=== PATIENT | female | born 1940 | race Caucasian/White ===

== ENCOUNTER 2017-03-13 10:20 | Observation (INO) | payer MEDICARE ==
[2017-03-13] MEDS ORDERED: Sodium Chloride 0.9% 5 ML Syringe FLUSH PRN (10:35)
--- NOTE | 2017-03-13 10:44 | EDM.PDOC ---
ED HISTORY OF PRESENT ILLNESS - General Chief Complaint: Chest Pain Stated Complaint: CHEST PAIN Time Seen by Provider: 03/13/17 10:35 Source of Information: Reports: Patient History Limitations: Reports: No limitations - History of Present Illness INITIAL COMMENTS - FREE TEXT/NARRATIVE: PT STATES SHE WAS SITTING AT THE TABLE THIS AM AND DEVELOPED RIGHT SIDED CHEST PAIN WITHOUT RADIATION. DESCRIBED TIGHT/PULLING AND CONSTANT IN NATURE. DENIES SOB, TRAUMA, REPETITIVE MOVEMENTS, N/V, FEVER, COUGH, OR SIMILAR SYMPTOMS IN PAST. PT DROVE SELF TO ER Severity: mild Location, General: Reports: chest Quality: Reports: Pressure Improves with: Reports: None Worsens with: Reports: None Associated Symptoms (General): Reports: chest pain. Denies: cough, cough w sputum, fever/chills, headaches, nausea/vomiting, shortness of breath - Related Data Allergies/ADRs: Allergies Allergy/AdvReac Type Severity Reaction Status Date / Time adhesive tape Allergy SKIN Verified 03/13/17 10:32 BREAKDOWN doxycycline Allergy Other Verified 03/13/17 10:32 gabapentin Allergy Cannot Verified 03/13/17 10:32 Remember Penicillins Allergy Other Verified 03/13/17 10:32 pravastatin sodium Allergy Other Verified 03/13/17 10:32 [From Pravachol] Home Meds: Home Meds Levothyroxine 25 mcg PO ACBRK 07/01/14 [History] Multivitamin [Multi Vitamin Daily] 1 tab PO DAILY 11/06/14 [History] Rosuvastatin [Crestor] 10 mg PO BEDTIME 07/03/15 [History] Aspirin [Ecotrin] 325 mg PO DAILY 12/18/15 [History] Past Medical History HEENT History: Reports: Cataract, Hard of hearing, Impaired vision Cardiovascular History: Reports: Afib, Blood clots/VTE/DVT, High cholesterol, Hypertension Respiratory History: Reports: Asthma Gastrointestinal History: Reports: Diverticulosis Genitourinary History: Reports: None [employer] 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 Musculoskeletal History: Reports: Fracture Neurological History: Reports: None Psychiatric History: Reports: None Endocrine/Metabolic History: Reports: None Hematologic History: Reports: None Immunologic History: Reports: None Oncologic (Cancer) History: Reports: Basal cell carcinoma Dermatologic History: Reports: Other (see below) Other Dermatologic History: basal cell cancer - Infectious Disease History Infectious Disease History: Reports: Chicken pox, Measles, Other (see below) Other Infectious Disease History: whooping cough - Past Surgical History Head Surgeries/Procedures: Reports: None HEENT Surgical History: Reports: Cataract surgery Cardiovascular Surgical History: Reports: Cardiac Ablation Respiratory Surgical History: Reports: None GI Surgical History: Reports: Other (see below) Other GI Surgeries/Procedures: stomach for fatty liver disease Female Surgical History: Reports: None Endocrine Surgical History: Reports: None Neurological Surgical History: Reports: None Musculoskeletal Surgical History: Reports: Hip replacement, Knee replacement Oncologic Surgical History: Reports: Mastectomy, Other (see below) Other Oncologic Surgeries/Procedures: bilateral mastectomy 2001 Dermatological Surgical History: Reports: None Social & Family History - Family History Cardiac: Reports: Afib - Tobacco Use Smoking Status *Q: Never Smoker Second Hand Smoke Exposure: No - Caffeine Use Caffeine Use: Reports: Coffee - Alcohol Use Days Per Week of Alcohol Use: 0 - Recreational Drug Use Recreational Drug Use: No - Living Situation & Occupation Living situation: Reports: Occupation: retired ED ROS GENERAL - Review of Systems Review Of Systems: ROS reveals no pertinent complaints other than HPI. Constitutional: Reports: no symptoms HEENT: Reports: No symptoms Respiratory: Reports: No Symptoms Cardiovascular: Reports: Chest pain Endocrine: Reports: no symptoms GI/Abdominal: Reports: No symptoms : Reports: no symptoms Musculoskeletal: Reports: no symptoms Skin: Reports: no symptoms Neurological: Reports: No Symptoms Psychiatric: Reports: No symptoms Hematologic/Lymphatic: Reports: no symptoms Immunologic: Reports: no symptoms ED EXAM, GENERAL - Physical Exam Exam: See Below Exam Limited By: No limitations General Appearance: alert, WD/WN, no apparent distress Nose: normal inspection, normal mucosa, no blood Throat/Mouth: Normal inspection, Normal oropharynx, No airway compromise Head: atraumatic, normocephalic Neck: normal inspection, supple Respiratory/Chest: no respiratory distress, lungs clear, normal breath sounds, no accessory muscle use, other (RIGHT SIDED CHEST DISCOMFORT WITH PALPATION) Cardiovascular: regular rate, rhythm, no murmur GI/Abdominal: normal bowel sounds, soft, non tender, no distention, no mass Back Exam: normal inspection. No: CVA tenderness (L), CVA tenderness (R) Extremities: normal inspection, non-tender, no pedal edema Neurological: alert, oriented, normal cognition Psychiatric: normal affect, normal mood Skin Exam: Warm, Dry, Intact, Normal color, No rash Lymphatic: no adenopathy Course - Vital Signs Last Recorded V/S: Last Vital Signs Temp 96.5 F 03/13/17 10:32 Pulse 66 03/13/17 10:32 Resp 13 03/13/17 10:32 BP 148/89 H 03/13/17 10:32 Pulse Ox 98 03/13/17 10:32 - Orders/Labs/Meds Orders: Active Orders 24 hr Category Date Time Status Cardiac Monitoring [RC] . DIRECTED Care 03/13/17 10:35 Ordered EKG Documentation Completion [RC] ASDIRECTED Care 03/13/17 10:37 Ordered Peripheral IV Care [RC] . DIRECTED Care 03/13/17 10:37 Ordered Chest 1V Frontal [CR] Stat Exams 03/13/17 10:36 Ordered CBC WITH AUTO DIFF [HEME] Stat Lab 03/13/17 10:35 Ordered COMPREHENSIVE METABOLIC PN,CMP [CHEM] Stat Lab 03/13/17 10:35 Ordered D Dimer [D-DIMER QUANTITATIVE] [COAG] Stat Lab 03/13/17 10:37 Ordered INR,PT,PROTHROMBIN TIME [COAG] Stat Lab 03/13/17 10:35 Ordered PTT,PARTIAL THROMBOPLSTIN TIME [COAG] Stat Lab 03/13/17 10:35 Ordered TROPONIN I [CHEM] Stat Lab 03/13/17 10:35 Ordered Sodium Chloride 0.9% [Syrex Flush] Med 03/13/17 10:35 Ordered 5 ml FLUSH Q8HR PRN Peripheral IV Insertion Adult [OM.PC] Stat Oth 03/13/17 10:35 Ordered Saline Lock Insert [OM.PC] Stat Oth 03/13/17 10:35 Ordered EKG 12 Lead [EK] Stat Ther 03/13/17 10:35 Ordered - Re-Assessments/Exams Free Text/Narrative Re-Assessment/Exam: 03/13/17 12:08 PT AFEBRILE, NONTOXIC APPEARING, VSS. DISCUSSED CASE WITH FREDY FARNSWORTH, [facility] AND WILL ADMIT PT TO OBSERVATION AND FOLLOW Departure - Departure Time of Disposition: 12:09 Disposition: Refer to Observation Condition: good Clinical Impression: Chest pain Qualifiers: Chest pain type: unspecified Qualified Code(s): R07.9 - Chest pain, unspecified Forms: ED Department Discharge - My Orders Last 24 Hours: My Active Orders 03/13/17 10:35 Cardiac Monitoring [RC] . DIRECTED CBC WITH AUTO DIFF [HEME] Stat COMPREHENSIVE METABOLIC PN,CMP [CHEM] Stat INR,PT,PROTHROMBIN TIME [COAG] Stat PTT,PARTIAL THROMBOPLSTIN TIME [COAG] Stat TROPONIN I [CHEM] Stat Sodium Chloride 0.9% [Syrex Flush] 5 ml FLUSH Q8HR PRN Peripheral IV Insertion Adult [OM.PC] Stat Saline Lock Insert [OM.PC] Stat EKG 12 Lead [EK] Stat 03/13/17 10:36 Chest 1V Frontal [CR] Stat 03/13/17 10:37 EKG Documentation Completion [RC] ASDIRECTED Peripheral IV Care [RC] . DIRECTED D Dimer [D-DIMER QUANTITATIVE] [COAG] Stat - Assessment/Plan Last 24 Hours: My Active Orders 03/13/17 10:35 Cardiac Monitoring [RC] . DIRECTED CBC WITH AUTO DIFF [HEME] Stat COMPREHENSIVE METABOLIC PN,CMP [CHEM] Stat INR,PT,PROTHROMBIN TIME [COAG] Stat PTT,PARTIAL THROMBOPLSTIN TIME [COAG] Stat TROPONIN I [CHEM] Stat Sodium Chloride 0.9% [Syrex Flush] 5 ml FLUSH Q8HR PRN Peripheral IV Insertion Adult [OM.PC] Stat Saline Lock Insert [OM.PC] Stat EKG 12 Lead [EK] Stat 03/13/17 10:36 Chest 1V Frontal [CR] Stat 03/13/17 10:37 EKG Documentation Completion [RC] ASDIRECTED Peripheral IV Care [RC] . DIRECTED D Dimer [D-DIMER QUANTITATIVE] [COAG] Stat Assessment:: CHEST PAIN Plan: ADMIT TO OBS
[2017-03-13 11:32] LABS: CHLORIDE,CL 106 mmol/L (98-115); SODIUM,NA 145 mmol/L (136-145)
[2017-03-13] MEDS ORDERED: Atropine 0.1 MG/ML 10 ML Syringe IVPUSH PRN (13:26)
[2017-03-13] MEDS ORDERED: Nitroglycerin 0.4 MG Tab.SL SL PRN (13:26)
[2017-03-13] MEDS ORDERED: EPINEPHrine 1:10,000 1 MG/10 ML Syringe IVPUSH PRN (13:26)
[2017-03-13] MEDS ORDERED: Lidocaine 2% 100 MG/5 ML Syringe IVPUSH PRN (13:26)
[2017-03-13] MEDS ORDERED: LORazepam 0.5 MG Tab PO ONE (18:06)
[2017-03-13] MEDS ORDERED: Rosuvastatin 10 MG Tab PO SCH (21:00)
[2017-03-13] MEDS: Clopidogrel 75 MG Tab PO SCH (21:10)
[2017-03-14 06:28] VITALS: BP 121/60
[2017-03-14] MEDS ORDERED: Levothyroxine 25 MCG Tab PO SCH (07:00)
[2017-03-14] MEDS: Clopidogrel 75 MG Tab PO SCH ×2 (07:57→08:49)
[2017-03-14] MEDS: Aspirin 325 MG Tab.EC PO SCH ×2 (07:57→08:49)
--- NOTE | 2017-03-14 18:08 | HP ---
This a history and physical combined with a discharge summary. The patient was admitted into observation on 03/13/2017 and she was discharged from observation on 03/14/2017, less than 24 hours. ADMITTING DIAGNOSIS: Chest pain. FINAL DIAGNOSES: Chest pain, atypical, likely anginal with likely non-STEMI type 2; with hyperlipidemia and hypertension; mild anxiety. HISTORY OF PRESENT ILLNESS: This 76-year-old female was admitted in observation. She came to the ED complaining of some right-sided chest pain. She did not have any radiation. She states she was sitting at the table yesterday morning, when she started having her right-sided chest pain. She also states that about a month ago, she had some left-sided chest pain. She had a very difficult time describing it. However, she did vaguely describe it as somewhat of a tight pulling sensation, somewhat constant in nature. It was not reproducible. At the time when she came in, she had no shortness of breath. No nausea. Denied any cough. She actually drove herself to the ED. She was admitted basically for rule out myocardial infarction. Her troponin was slightly elevated at the upper limits of 0.08, so she was placed in telemetry. PAST MEDICAL HISTORY: Includes, hypertension, hyperlipidemia, histories of DVT per family, hyperthyroidism, diverticulitis, osteoarthritis, arthritis in both knees, hepatic steatosis, adrenal adenoma, fibromyalgia, inflammatory arthritis, osteopenia. Family does report at times confusion. History of atrial fibrillation, status post ablation 3 years ago. PAST SURGICAL HISTORY: Tobacco and alcohol, denies any. Never smoked. Caffeine use, coffee. Recreational drug use, none. Living situation and occupation: The patient is . Occupation, is retired. The patient is a do not resuscitate. MEDICATIONS: At home: Levothyroxine 25 mcg p.o. daily, Crestor 10 mg daily, Prolia 60 mg every 6 months, aspirin 325 mg tablet which she took prior to admission, multivitamin daily, calcium carbonate/vitamin-D daily. MEDICATIONS: 1. Nitroglycerin as directed (newly added). 2. Plavix 75 mg p.o. daily (newly added). 3. Aspirin, reduced down to 81 mg. The patient was taking 325 p.o. daily, and she can continue on all other her home medications. The patient's family did consult with Dr. Horton on rounds and recommended a head CT. The family thought, maybe she had some histories of confusion; however, the patient has refused this head CT. DISPOSITION: The patient will be discharged from the hospital. She was given specific instructions regarding if she has any increase in further chest pain, she is supposed to take nitroglycerin and call for help or seek medical care. Report any chest pain or nausea or diaphoresis. FOLLOWUP: The patient will follow up at [facility]. RECOMMENDATIONS AT FOLLOWUP: Schedule the patient for a treadmill within a month. Verify family's history that the patient had a stroke, as this is not in her medical record and the patient has no recollection of history of stroke. Please clarify family history. ALLERGIES: Penicillin which gives her hives, doxycycline, gabapentin, pravastatin and adhesive tape. However, she is tolerating Crestor. REVIEW OF SYSTEMS: A 10-point review of system was obtained. All were negative. PHYSICAL EXAMINATION: VITAL SIGNS: Temperature 96.8, heart rate around 57, blood pressure 121/60, O2 sats 98% room air, respiratory rate 16. LUNGS: Clear to auscultation. GENERAL APPEARANCE: Alert. No distress. HEAD: Atraumatic. NECK: Supple. No bruits. CARDIOVASCULAR: Regular rate and rhythm. No S3. Negative murmur. GI: She had good bowel tones. Soft, nontender. MUSCULOSKELETAL: No CVA tenderness. NEUROLOGICAL: The patient is alert and oriented. Normal cognition. Very lucid. She had a good affect. She seems slightly anxious. SKIN: Warm, dry, and intact. No rash. HOSPITAL COURSE: She did remain in telemetry last night. She did have a troponin that peaked at 0.09 and then went back down to normal this morning. Thyroid was normal. Sodium 145, potassium 3.9, chloride 106, BUN 12, creatinine 0.69, creatinine clearance 60. Hematological, unremarkable. Microbiology report, none. EKG did not show any ST abnormality, however PVCs around 10 per minute. Nurses did not report any aberrancy or any abnormal telemetry. Chest x-ray, no acute process. MEDICAL DECISION MAKIN minutes were spent on this discharge planning and process, discussing, coordinating care with Pharmacy and family. /[id number]/MODL MTDD
== END 2017-03-14 11:35 | disposition home or self-care (01) ==
LOC: KA.ED 10:20 → KA.MS 12:10
PROVIDERS: ADMIT Physician Assistant Surgical; ATTEND Family Medicine
DX: R07.9 Chest pain, unspecified (principal); I10 Essential (primary) hypertension; E78.00 Pure hypercholesterolemia, unspecified; J45.909 Unspecified asthma, uncomplicated; E05.90 Thyrotoxicosis, unspecified without thyrotoxic crisis or storm; Z79.82 Long term (current) use of aspirin; Z79.899 Other long term (current) drug therapy; Z88.0 Allergy status to penicillin; Z88.1 Allergy status to other antibiotic agents; Z91.09 Other allergy status, other than to drugs and biological substances; Z88.8 Allergy status to other drugs, medicaments and biological substances; Z96.649 Presence of unspecified artificial hip joint; Z96.659 Presence of unspecified artificial knee joint
CPT/HCPCS: 36415; 71010; 80053; 84443; 84484; 85025; 85379; 85610; 85730; 99285; A9270; 93005; G0378

== ENCOUNTER 2017-04-04 15:55 | Emergency (ER) | payer MEDICARE ==
--- NOTE | 2017-04-04 16:23 | EDM.PDOC ---
Addendum entered and electronically signed by Kings Anderson PA-C 04/04/17 17 :05: Some information was accidentally added to this note and signed that was intended for another patient. This includes: the neck tenderness, the head CT results, the second entry in "course", the headache diagnosis and the discharge plan. The discharge times will also be incorrect since I signed it prematurely. The CXR is unremarkable. Troponin is 0.05. Discussed findings and treatment plan with patient. She remained stable throughout ER course and was discharged in stable condition. The correct diagnosis is: chest wall pain. The discharge instructions are: 1. Drink 6-8 cups of water daily. 2. Follow up with your PCP in 3 days for recheck. 3. Return to ER if worsening. Original Note: ED HPI GENERAL MEDICAL PROBLEM - General Stated Complaint: CHEST PAIN Time Seen by Provider: 04/04/17 15:56 Source of Information: Reports: Patient History Limitations: Reports: No Limitations - History of Present Illness INITIAL COMMENTS - FREE TEXT/NARRATIVE: Patient presents with left anterior chest pain that started ten hours ago (at 0600) at home. She describes at as pain that worsens with deep breaths and then improves after a few seconds but doesn't completely resolve. It is also worse when she lies down but improves with sitting, standing or walking. She worked out in her yard and garden for 1.5 (at 0630 or 0700) hours and when she went back in house she wondered if she did too much lifting as it was hurting. She has had numerous episodes today but all improve with change in position and last only a few seconds. She denies any history of heart problems except 3 weeks ago was here with chest pain that she thinks was a heart attack and was observed in the hospital. She does have family history of heart problems most notably in her children with one heart transplant and one . Record shows diagnoses from that day include: chest pain, essential hypertension, hypercholesterolemia, asthma, thyrotoxicosis. Will review lab and EKG from that visit too. - Related Data Allergies Allergy/AdvReac Type Severity Reaction Status Date / Time adhesive tape Allergy SKIN Verified 04/04/17 16:28 BREAKDOWN doxycycline Allergy Other Verified 04/04/17 16:28 gabapentin Allergy Cannot Verified 04/04/17 16:28 Remember Penicillins Allergy Other Verified 04/04/17 16:28 pravastatin sodium Allergy Other Verified 05/19/17 16:28 [From Pravachol] Home Meds: Home Meds Levothyroxine 25 mcg PO ACBRK 07/01/14 [History] Multivitamin [Multi-Vitamin Daily] 1 tab PO DAILY 11/06/14 [History] Rosuvastatin [Crestor] 10 mg PO BEDTIME 07/03/15 [History] Aspirin [Adult Low Dose Aspirin EC] 81 mg PO DAILY #90 tablet. 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 Musculoskeletal History: Reports: Fracture Neurological History: Reports: None Psychiatric History: Reports: None Endocrine/Metabolic History: Reports: None Hematologic History: Reports: None Immunologic History: Reports: None Oncologic (Cancer) History: Reports: Basal Cell Carcinoma Dermatologic History: Reports: Other (See Below) Other Dermatologic History: basal cell cancer - Infectious Disease History Infectious Disease History: Reports: Chicken Pox, Measles, Other (See Below) Other Infectious Disease History: whooping cough - Past Surgical History HEENT Surgical History: Reports: Cataract Surgery GI Surgical History: Reports: Other (See Below) Musculoskeletal Surgical History: Reports: Hip Replacement, Knee Replacement Oncologic Surgical History: Reports: Mastectomy, Other (See Below) Social & Family History - Family History Family Medical History: Noncontributory Cardiac: Reports: Afib - Tobacco Use Smoking Status *Q: Never Smoker Second Hand Smoke Exposure: No - Caffeine Use Caffeine Use: Reports: Coffee - Alcohol Use Days Per Week of Alcohol Use: 0 - Recreational Drug Use Recreational Drug Use: No - Living Situation & Occupation Living situation: Reports: Occupation: Retired ED ROS GENERAL - Review of Systems Review Of Systems: See Below Constitutional: Denies: Fever, Chills, Malaise, Weakness, Diaphoresis HEENT: Denies: Throat Pain, Vision Change Respiratory: Denies: Shortness of Breath, Cough Cardiovascular: Reports: Chest Pain. Denies: Lightheadedness, Syncope GI/Abdominal: Denies: Abdominal Pain, Nausea, Vomiting Musculoskeletal: Denies: Neck Pain, Arm Pain Skin: Denies: Cyanosis, Jaundice, Mottled, Pallor, Diaphoresis Neurological: Denies: Confusion, Dizziness, Headache, Seizure, Syncope, Trouble Speaking Psychiatric: Denies: Agitation, Anxiety, Confusion ED EXAM, GENERAL - Physical Exam Exam: See Below Exam Limited By: No Limitations General Appearance: Alert, WD/WN, No Apparent Distress Eye Exam: Bilateral Eye: EOMI, Normal Inspection, PERRL Ears: Normal External Exam, Hearing Grossly Normal Nose: Normal Inspection, No Blood Throat/Mouth: Normal Lips, Normal Voice, No Airway Compromise Head: Atraumatic, Normocephalic Neck: Normal Inspection, Supple, Full Range of Motion, Tender Lateral (right lateral muscular). No: Carotid Bruit Respiratory/Chest: No Respiratory Distress, Lungs Clear, Normal Breath Sounds, No Accessory Muscle Use, Other (Palpation is tender over left anterior ribs 5-9 without crepitus or deformity. This is the same pain she has been feeling today and similar to the right-sided pain she had 3 weeks ago she says.) Cardiovascular: Normal Peripheral Pulses, Regular Rate, Rhythm, No Murmur GI/Abdominal: Normal Bowel Sounds, Soft, Non-Tender, No Organomegaly, No Distention Back Exam: No: CVA Tenderness (L), CVA Tenderness (R) Extremities: Normal Inspection, Normal Range of Motion, Non-Tender, No Pedal Edema Neurological: Alert, Oriented, Normal Cognition, No Motor/Sensory Deficits Psychiatric: Normal Affect, Normal Mood Skin Exam: Warm, Dry, Intact, Normal Color, No Rash Course - Orders/Labs/Meds Orders: Active Orders 24 hr Category Date Time Status EKG Documentation Completion [RC] ASDIRECTED Care 04/04/17 16:09 Ordered BASIC METABOLIC PANEL,BMP [CHEM] Stat Lab 04/04/17 16:08 Ordered CBC WITH AUTO DIFF [HEME] Stat Lab 04/04/17 16:08 Ordered TROPONIN I [CHEM] Stat Lab 04/04/17 16:08 Ordered EKG 12 Lead [EK] Routine Ther 04/04/17 16:08 Ordered - Re-Assessments/Exams Free Text/Narrative Re-Assessment/Exam: 04/04/17 16:36 EKG shows no evidence of acute change and is unchanged from comparison on . 04/04/17 16:47 Patient remained stable throughout ER course and rates pain down to 1/[address] shows no acute changes or bleed. Discussed findings with patient and will discharge with follow up advised with her neurologist in [place] since she hasn't been to him for two years; with the more frequent headaches in recent weeks. She agrees with this. Departure - Departure Time of Disposition: 16:49 Disposition: Home, Self-Care 01 Condition: good Clinical Impression: Headache Qualifiers: Headache type: unspecified Headache chronicity pattern: acute headache Intractability: not intractable Qualified Code(s): R51 - Headache Additional Instructions: 1. Drink 6-8 cups of water daily. 2. Recheck with your neurologist soon if possible. 3. Follow up with your PCP if unable to get in to neurologist in the next couple weeks. - My Orders Last 24 Hours: My Active Orders 04/04/17 16:08 BASIC METABOLIC PANEL,BMP [CHEM] Stat CBC WITH AUTO DIFF [HEME] Stat TROPONIN I [CHEM] Stat EKG 12 Lead [EK] Routine 04/04/17 16:09 EKG Documentation Completion [RC] ASDIRECTED - Assessment/Plan Last 24 Hours: My Active Orders 04/04/17 16:08 BASIC METABOLIC PANEL,BMP [CHEM] Stat CBC WITH AUTO DIFF [HEME] Stat TROPONIN I [CHEM] Stat EKG 12 Lead [EK] Routine 04/04/17 16:09 EKG Documentation Completion [RC] ASDIRECTED
[2017-04-04 16:29] VITALS: BP 138/62
[2017-04-04 16:56] LABS: CHLORIDE,CL 106 mmol/L (98-115); SODIUM,NA 145 mmol/L (136-145)
== END 2017-04-04 17:35 | disposition home or self-care (01) ==
LOC: KA.ED 15:55
DX: R07.89 Other chest pain (principal); R51 Headache; I48.91 Unspecified atrial fibrillation; I10 Essential (primary) hypertension; E78.00 Pure hypercholesterolemia, unspecified; J45.909 Unspecified asthma, uncomplicated; Z88.0 Allergy status to penicillin; Z88.8 Allergy status to other drugs, medicaments and biological substances; Z79.82 Long term (current) use of aspirin; Z79.899 Other long term (current) drug therapy; Z98.49 Cataract extraction status, unspecified eye; Z96.659 Presence of unspecified artificial knee joint; Z96.649 Presence of unspecified artificial hip joint
CPT/HCPCS: 71020; 80048; 84484; 85025; 93005; 99282; 99284

== ENCOUNTER 2017-08-29 04:58 | Emergency (ER) | payer MEDICARE ==
[2017-08-29] MEDS ORDERED: Ondansetron 4 MG Tab.DIS PO ONE (05:00)
[2017-08-29] MEDS ORDERED: Ondansetron 4 MG Tab.DIS ONE (05:10)
[2017-08-29 05:28] VITALS: BP 114/74
--- NOTE | 2017-08-29 06:05 | EDM.PDOC ---
ED HPI GENERAL MEDICAL PROBLEM - General Chief Complaint: Gastrointestinal Problem Stated Complaint: N/V Time Seen by Provider: 08/29/17 05:38 Source of Information: Reports: Patient History Limitations: Reports: No Limitations - History of Present Illness INITIAL COMMENTS - FREE TEXT/NARRATIVE: Patient presents with nausea and mid-epigastric pain that started early yesterday; the nausea first, then the pain. She vomited twice during the night. Initially she denies any diarrhea or constipation (and this is what she told the nurse on arrival, as well as nausea but no vomiting) but later in the exam she told me she had diarrhea 5 times last night. Zofran ODT was given shortly after arrival, so when I examined her she had started feeling much better with the nausea gone and the mid-epigastric pain gone. Pt says she doesn 't often get sick and is always busy with something; she is cleaning up a little house that they recently bought: the oldest house in [place] she says. - Related Data Allergies Allergy/AdvReac Type Severity Reaction Status Date / Time adhesive tape Allergy SKIN Verified 08/29/17 05:14 BREAKDOWN doxycycline Allergy Other Verified 08/29/17 05:14 gabapentin Allergy Cannot Verified 08/29/17 05:14 Remember Penicillins Allergy Other Verified 08/29/17 05:14 pravastatin sodium Allergy Other Verified 08/29/17 05:14 [From Pravachol] Home Meds: Home Meds Multivitamin [Multi-Vitamin Daily] 1 tab PO DAILY 11/06/14 [History] Rosuvastatin [Crestor] 10 mg PO BEDTIME 07/03/15 [History] Aspirin [Adult Low Dose Aspirin EC] 81 mg PO DAILY #90 tablet. 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 Musculoskeletal History: Reports: Arthritis, Fracture, Fibromyalgia Neurological History: Reports: None, Headaches, Chronic Psychiatric History: Reports: None Endocrine/Metabolic History: Reports: Hypothyroidism Hematologic History: Reports: Anemia Immunologic History: Reports: None Oncologic (Cancer) History: Reports: Basal Cell Carcinoma Dermatologic History: Reports: Other (See Below) Other Dermatologic History: basal cell cancer - Infectious Disease History Infectious Disease History: Reports: Chicken Pox, Measles, Other (See Below) Other Infectious Disease History: whooping cough - Past Surgical History Head Surgeries/Procedures: Reports: None HEENT Surgical History: Reports: Cataract Surgery GI Surgical History: Reports: Other (See Below) Musculoskeletal Surgical History: Reports: Hip Replacement, Knee Replacement Oncologic Surgical History: Reports: Mastectomy, Other (See Below) Social & Family History - Family History Family Medical History: Noncontributory Cardiac: Reports: Afib - Tobacco Use Smoking Status *Q: Never Smoker Second Hand Smoke Exposure: No - Caffeine Use Caffeine Use: Reports: Coffee - Alcohol Use Days Per Week of Alcohol Use: 0 - Recreational Drug Use Recreational Drug Use: No - Living Situation & Occupation Living situation: Reports: Occupation: Retired ED ROS GENERAL - Review of Systems Review Of Systems: See Below Constitutional: Denies: Fever (but has low-grade fever in ER), Chills, Weakness HEENT: Denies: Throat Pain, Vision Change Respiratory: Denies: Shortness of Breath, Cough Cardiovascular: Denies: Chest Pain, Syncope GI/Abdominal: Reports: Abdominal Pain, Nausea : Reports: Flank Pain (bilat, not sure how long). Denies: Dysuria Musculoskeletal: Reports: No Symptoms Skin: Denies: Cyanosis, Jaundice, Mottled, Pallor, Diaphoresis Neurological: Reports: Difficulty Walking (a little off balance sometimes for the past week). Denies: Weakness Psychiatric: Denies: Agitation, Anxiety ED EXAM, GI/ABD - Physical Exam Exam: See Below Exam Limited By: No Limitations General Appearance: Alert, WD/WN, No Apparent Distress Eyes: Bilateral: Normal Appearance, EOMI Ears: Normal External Exam, Hearing Grossly Normal Nose: Normal Inspection, No Blood Throat/Mouth: Normal Inspection, Normal Lips, Normal Voice, No Airway Compromise Head: Atraumatic, Normocephalic Neck: Normal Inspection, Full Range of Motion Respiratory/Chest: No Respiratory Distress, Lungs Clear, Normal Breath Sounds, No Accessory Muscle Use Cardiovascular: Regular Rate, Rhythm, No Murmur GI/Abdominal Exam: Normal Bowel Sounds, Soft, No Organomegaly, No Distention, Tender (in RUQ and LUQ only; non-tender in mid-epigastrium and elsewhere) Back Exam: CVA Tenderness (L), CVA Tenderness (R). No: Paraspinal Tenderness, Vertebral Tenderness Extremities: Normal Inspection, Normal Range of Motion, Other (5/5 strength of UE/LE bilat) Neurological: Alert, Oriented, CN II-XII Intact, No Motor/Sensory Deficits, Confused (There seems to be a little confusion consistent with mild dementia or possibly a UTI.) Psychiatric: Normal Affect, Normal Mood Skin Exam: Warm, Dry, Intact, Normal Color, No Rash Course - Vital Signs Last Recorded V/S: Last Vital Signs Temp 99.7 F 08/29/17 05:21 Pulse 80 08/29/17 05:21 Resp 16 08/29/17 05:21 BP 114/74 08/29/17 05:21 Pulse Ox 97 08/29/17 05:21 - Orders/Labs/Meds Orders: Active Orders 24 hr Category Date Time Status CBC WITH AUTO DIFF [HEME] Stat Lab 08/29/17 05:54 Ordered CMP [COMPREHENSIVE METABOLIC PN,CMP] [CHEM] Stat Lab 08/29/17 05:54 Ordered UA W/MICROSCOPIC [URIN] Stat Lab 08/29/17 05:54 Uncollected Meds: Medications Discontinued Medications Generic Name Dose Route Start Last Admin Trade Name Kevin PRN Reason Stop Dose Admin Ondansetron HCl Confirm 08/29/17 05:10 Zofran Odt Administered 08/29/17 05:11 Dose 4 mg .ROUTE .STK-MED ONE - Re-Assessments/Exams Free Text/Narrative Re-Assessment/Exam: 08/29/17 06:05 We talked privately with pt's and asked about any confusion. He says that he has noticed some confusion ever since she had a knee replacement 2-3 years ago, he thinks was the anesthesia, but thinks it might be a little worse in last two days. tells me she has an appointment today with government relations manager in [place]. She had an ablation for A Fib that was successful. 08/29/17 07:12 UA is negative for UTI. With the balance problem and the recent confusion will get a head CT. Patient is feeling comfortable. I discussed this with pt and her who agree with getting head CT. 08/29/17 07:[address] is negative for acute pathology. Mild to moderate chronic small vessel changes are noted. Labs and exam show evidence of dehydration. Discussed with patient and her and they will follow up with her PCP for further evaluation of memory loss and balance issues as needed. Patient discharged in stable condition. Nausea remains controlled and Rx for Zofran ODT provided for prn use. Departure - Departure Time of Disposition: 07:48 Disposition: Home, Self-Care 01 Condition: Good Clinical Impression: Nausea and vomiting in adult patient - Discharge Information Instructions: Nausea and Vomiting, Adult, [id number] Additional Instructions: 1. Take the Zofran ODT and place it under your tongue as directed for nausea or vomiting. 2. Drink 8 cups of water daily. 3. Follow up with your PCP next week for recheck or sooner if worsening. - My Orders Last 24 Hours: My Active Orders 08/29/17 05:54 CBC WITH AUTO DIFF [HEME] Stat CMP [COMPREHENSIVE METABOLIC PN,CMP] [CHEM] Stat UA W/MICROSCOPIC [URIN] Stat - Assessment/Plan Last 24 Hours: My Active Orders 08/29/17 05:54 CBC WITH AUTO DIFF [HEME] Stat CMP [COMPREHENSIVE METABOLIC PN,CMP] [CHEM] Stat UA W/MICROSCOPIC [URIN] Stat
[2017-08-29 06:56] LABS: CHLORIDE,CL 105 mmol/L (98-115); SODIUM,NA 142 mmol/L (136-145)
== END 2017-08-29 08:00 | disposition home or self-care (01) ==
LOC: KA.ED 04:58
DX: R11.2 Nausea with vomiting, unspecified (principal); R10.13 Epigastric pain; J45.909 Unspecified asthma, uncomplicated; I48.91 Unspecified atrial fibrillation; E78.00 Pure hypercholesterolemia, unspecified; I10 Essential (primary) hypertension; M19.90 Unspecified osteoarthritis, unspecified site; E03.9 Hypothyroidism, unspecified; Z98.49 Cataract extraction status, unspecified eye; Z96.659 Presence of unspecified artificial knee joint; Z79.82 Long term (current) use of aspirin; Z79.899 Other long term (current) drug therapy; Z88.0 Allergy status to penicillin; Z88.1 Allergy status to other antibiotic agents; Z88.8 Allergy status to other drugs, medicaments and biological substances; Z91.09 Other allergy status, other than to drugs and biological substances; Z87.440 Personal history of urinary (tract) infections; Z96.649 Presence of unspecified artificial hip joint
CPT/HCPCS: 36415; 70450; 80053; 81001; 85025; 96374; 99284; A9270

== ENCOUNTER 2017-11-18 11:56 | Emergency (ER) | payer MEDICARE ==
[2017-11-18] MEDS ORDERED: Sodium Chloride 0.9% 5 ML Syringe FLUSH PRN (12:11)
--- NOTE | 2017-11-18 12:26 | EDM.PDOC ---
ED HPI GENERAL MEDICAL PROBLEM - General Time Seen by Provider: 11/18/17 12:11 Source of Information: Reports: Patient, EMS, EMS Notes Reviewed History Limitations: Reports: No Limitations - History of Present Illness INITIAL COMMENTS - FREE TEXT/NARRATIVE: Patient is a 77-year-old female who presents via EMS to the emergency department this afternoon with a complaint of chest pain. Patient was sent from [facility] in [place] after being being seen by the provider there and found to have an irregular ekg. Patient states that at approximately 9 a.m. this morning she was sweeping the floor and felt sharp pain to her left chest. She also experienced some vision blurriness. Patient went to the [facility] where she was then transferred here. Patient seemed mildly confused to EMS staff who know her well. Previous ER documentation from 08/29/2017 affirms confusion state and at that time mentioned that this is been going on for several years. CT head on 08/29/2017 showed no acute intracranial process. Patient denies shortness of breath, nausea, vomiting, diarrhea, fever, abdominal pain, any fall or trauma. Onset: Today Duration: Minutes: Location: Reports: Chest Quality: Reports: Ache Severity: Mild Improves with: Reports: None Worsens with: Reports: None Associated Symptoms: Reports: Chest Pain. Denies: Cough, Fever/Chills, Nausea/ Vomiting, Shortness of Breath, Syncope - Related Data Allergies Allergy/AdvReac Type Severity Reaction Status Date / Time adhesive tape Allergy SKIN Verified 11/18/17 12:42 BREAKDOWN doxycycline Allergy Other Verified 11/18/17 12:42 gabapentin Allergy Cannot Verified 11/18/17 12:42 Remember Penicillins Allergy Other Verified 11/18/17 12:42 pravastatin sodium Allergy Other Verified 11/18/17 12:42 [From Pravachol] Home Meds: Home Meds Rosuvastatin [Crestor] 10 mg PO BEDTIME 07/03/15 [History] Clopidogrel [Plavix] 75 mg PO DAILY #90 tablet 03/14/17 [Rx] Levothyroxine 25 mcg PO Q2D 11/18/17 [History] Levothyroxine 37.5 mcg PO Q2D 11/18/17 [History] Past Medical History HEENT History: Reports: Cataract, Hard of Hearing, Impaired Vision Cardiovascular History: Reports: Afib, Blood Clots/VTE/DVT, High Cholesterol, Hypertension Respiratory History: Reports: Asthma Gastrointestinal History: Reports: Diverticulosis Genitourinary History: Reports: None, UTI, Recurrent 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 Musculoskeletal History: Reports: Arthritis, Fracture, Fibromyalgia Neurological History: Reports: None, Headaches, Chronic Psychiatric History: Reports: None Endocrine/Metabolic History: Reports: Hypothyroidism Hematologic History: Reports: Anemia Immunologic History: Reports: None Oncologic (Cancer) History: Reports: Basal Cell Carcinoma Dermatologic History: Reports: Other (See Below) Other Dermatologic History: basal cell cancer - Infectious Disease History Infectious Disease History: Reports: Chicken Pox, Measles, Other (See Below) Other Infectious Disease History: whooping cough - Past Surgical History Head Surgeries/Procedures: Reports: None HEENT Surgical History: Reports: Cataract Surgery GI Surgical History: Reports: Other (See Below) Musculoskeletal Surgical History: Reports: Hip Replacement, Knee Replacement Oncologic Surgical History: Reports: Mastectomy, Other (See Below) Social & Family History - Family History Family Medical History: Noncontributory Cardiac: Reports: Afib - Tobacco Use Smoking Status *Q: Never Smoker Second Hand Smoke Exposure: No - Caffeine Use Caffeine Use: Reports: Coffee - Alcohol Use Days Per Week of Alcohol Use: 0 - Recreational Drug Use Recreational Drug Use: No - Living Situation & Occupation Living situation: Reports: Occupation: Retired ED ROS GENERAL - Review of Systems Review Of Systems: ROS reveals no pertinent complaints other than HPI. Constitutional: Reports: No Symptoms HEENT: Reports: No Symptoms Respiratory: Reports: No Symptoms Cardiovascular: Reports: Chest Pain Endocrine: Reports: No Symptoms GI/Abdominal: Reports: No Symptoms : Reports: No Symptoms Musculoskeletal: Reports: No Symptoms Skin: Reports: No Symptoms Neurological: Reports: Confusion (baseline) Psychiatric: Reports: No Symptoms Hematologic/Lymphatic: Reports: No Symptoms Immunologic: Reports: No Symptoms ED EXAM, GENERAL - Physical Exam Exam: See Below Exam Limited By: No Limitations General Appearance: Alert, WD/WN, No Apparent Distress Eye Exam: Bilateral Eye: Normal Inspection Nose: Normal Inspection, Normal Mucosa, No Blood Throat/Mouth: Normal Inspection, Normal Oropharynx, No Airway Compromise Head: Atraumatic, Normocephalic Neck: Normal Inspection, Supple, Non-Tender Respiratory/Chest: No Respiratory Distress, Lungs Clear, Normal Breath Sounds, No Accessory Muscle Use, Other (Left chest tender to palpation at fifth intercostal space, midclavicular line.) Cardiovascular: Regular Rate, Rhythm, No Murmur GI/Abdominal: Normal Bowel Sounds, Soft, Non-Tender, No Organomegaly, No Distention, No Abnormal Bruit Back Exam: Normal Inspection. No: CVA Tenderness (L), CVA Tenderness (R) Extremities: Normal Inspection, No Pedal Edema Neurological: Alert, No Motor/Sensory Deficits, Confused, Memory Loss Recent Events Psychiatric: Normal Affect, Normal Mood Skin Exam: Warm, Dry, Intact, Normal Color Lymphatic: No Adenopathy EKG INTERPRETATION EKG Date: 11/18/17 Time: 12:25 Rhythm: Other (Sinus bradycardia) Rate (Beats/Min): 57 [place]: LAD-Left [place] Deviation P-Wave: Present ST-T: Other (nonspecific) Comparison: No Change Course - Orders/Labs/Meds Orders: Active Orders 24 hr Category Date Time Status Cardiac Monitoring [RC] . DIRECTED Care 11/18/17 12:11 Ordered EKG Documentation Completion [RC] ASDIRECTED Care 11/18/17 12:14 Ordered Peripheral IV Care [RC] . DIRECTED Care 11/18/17 12:14 Ordered Pulse Oximetry [RC] CONTINUOUS Care 11/18/17 12:14 Ordered Chest 1V Frontal [CR] Stat Exams 11/18/17 12:13 Ordered CBC WITH AUTO DIFF [HEME] Stat Lab 11/18/17 12:11 Ordered COMPREHENSIVE METABOLIC PN,CMP [CHEM] Stat Lab 11/18/17 12:11 Ordered INR,PT,PROTHROMBIN TIME [COAG] Stat Lab 11/18/17 12:11 Ordered LIPASE [CHEM] Stat Lab 11/18/17 12:11 Ordered MAGNESIUM [CHEM] Stat Lab 11/18/17 12:11 Ordered PTT,PARTIAL THROMBOPLSTIN TIME [COAG] Stat Lab 11/18/17 12:11 Ordered TROPONIN I [CHEM] Stat Lab 11/18/17 12:11 Ordered UA W/MICROSCOPIC [URIN] Stat Lab 11/18/17 12:11 Uncollected Sodium Chloride 0.9% [Syrex Flush] Med 11/18/17 12:11 Ordered 5 ml FLUSH Q8HR PRN Peripheral IV Insertion Adult [OM.PC] Stat Oth 11/18/17 12:11 Ordered Saline Lock Insert [OM.PC] Stat Oth 11/18/17 12:11 Ordered EKG 12 Lead [EK] Stat Ther 11/18/17 12:13 Ordered Medication Orders Sodium Chloride (Syrex Flush) 5 ml FLUSH Q8HR PRN PRN Reason: Keep Vein Open Meds: Medications Generic Name Dose Route Start Last Admin Trade Name Freq PRN Reason Stop Dose Admin Sodium Chloride 5 ml 11/18/17 12:11 Syrex Flush FLUSH Q8HR PRN Keep Vein Open - Radiology Interpretation Free Text/Narrative:: Chest x-ray negative for acute process - Re-Assessments/Exams Free Text/Narrative Re-Assessment/Exam: 11/18/17 13:43 Patient afebrile, nontoxic appearing. Vital signs stable. Chest discomfort resolved. Patient resting comfortably. Patient will follow-up in [facility] in next 2 days. Departure - Departure Time of Disposition: 13:41 Disposition: Home, Self-Care 01 Condition: Good Clinical Impression: Costochondral chest pain Chest pain Qualifiers: Chest pain type: unspecified Qualified Code(s): R07.9 - Chest pain, unspecified Instructions: Costochondritis, [id number], Chest Wall Pain, [id number] Referrals: Vickie Joseph PA-C [Primary Care Provider] - Additional Instructions: Follow-up at the [facility] in next 1-2 days. Return to ER sooner if symptoms continue or worsen. - My Orders Last 24 Hours: My Active Orders 11/18/17 12:11 Cardiac Monitoring [RC] . DIRECTED CBC WITH AUTO DIFF [HEME] Stat COMPREHENSIVE METABOLIC PN,CMP [CHEM] Stat INR,PT,PROTHROMBIN TIME [COAG] Stat LIPASE [CHEM] Stat MAGNESIUM [CHEM] Stat PTT,PARTIAL THROMBOPLSTIN TIME [COAG] Stat TROPONIN I [CHEM] Stat UA W/MICROSCOPIC [URIN] Stat Sodium Chloride 0.9% [Syrex Flush] 5 ml FLUSH Q8HR PRN Peripheral IV Insertion Adult [OM.PC] Stat Saline Lock Insert [OM.PC] Stat 11/18/17 12:13 Chest 1V Frontal [CR] Stat EKG 12 Lead [EK] Stat 11/18/17 12:14 EKG Documentation Completion [RC] ASDIRECTED Peripheral IV Care [RC] . DIRECTED Pulse Oximetry [RC] CONTINUOUS - Assessment/Plan Last 24 Hours: My Active Orders 11/18/17 12:11 Cardiac Monitoring [RC] . DIRECTED CBC WITH AUTO DIFF [HEME] Stat COMPREHENSIVE METABOLIC PN,CMP [CHEM] Stat INR,PT,PROTHROMBIN TIME [COAG] Stat LIPASE [CHEM] Stat MAGNESIUM [CHEM] Stat PTT,PARTIAL THROMBOPLSTIN TIME [COAG] Stat TROPONIN I [CHEM] Stat UA W/MICROSCOPIC [URIN] Stat Sodium Chloride 0.9% [Syrex Flush] 5 ml FLUSH Q8HR PRN Peripheral IV Insertion Adult [OM.PC] Stat Saline Lock Insert [OM.PC] Stat 11/18/17 12:13 Chest 1V Frontal [CR] Stat EKG 12 Lead [EK] Stat 11/18/17 12:14 EKG Documentation Completion [RC] ASDIRECTED Peripheral IV Care [RC] . DIRECTED Pulse Oximetry [RC] CONTINUOUS Assessment:: Atypical chest pain Plan: Follow-up at the [facility]
[2017-11-18 13:26] LABS: CHLORIDE,CL 105 mmol/L (98-115); SODIUM,NA 139 mmol/L (136-145)
[2017-11-18 19:31] VITALS: BP 132/58
== END 2017-11-18 14:00 | disposition home or self-care (01) ==
LOC: KA.ED 11:56
DX: R07.1 Chest pain on breathing (principal); R07.89 Other chest pain; I10 Essential (primary) hypertension; E78.00 Pure hypercholesterolemia, unspecified; E03.9 Hypothyroidism, unspecified; Z79.02 Long term (current) use of antithrombotics/antiplatelets; Z88.0 Allergy status to penicillin; Z88.8 Allergy status to other drugs, medicaments and biological substances; Z88.1 Allergy status to other antibiotic agents; Z91.048 Other nonmedicinal substance allergy status
CPT/HCPCS: 36415; 71045; 80053; 81001; 83690; 83735; 84484; 85025; 85610; 85730; 93005; 99284; 99285

== ENCOUNTER 2018-01-24 12:58 | Inpatient (IN) | payer MEDICARE ==
[2018-01-24] MEDS ORDERED: Ondansetron 4 MG/2 ML SDV IVPUSH ONE (13:17)
[2018-01-24] MEDS ORDERED: Sodium Chloride 0.9% 1,000 ML IV ONE (13:17)
--- NOTE | 2018-01-24 13:27 | EDM.PDOC ---
ED HPI GENERAL MEDICAL PROBLEM - General Chief Complaint: General Stated Complaint: LOWER ABDOMINAL PAIN,N/V Time Seen by Provider: 01/24/18 13:14 Source of Information: Reports: Patient, EMS, EMS Notes Reviewed, Family History Limitations: Reports: Altered Mental Status - History of Present Illness INITIAL COMMENTS - FREE TEXT/NARRATIVE: Patient is a 77-year-old female who was brought to the emergency department this afternoon via EMS. Per patient's , at approximately 11 a.m. this morning while sitting on the couch patient became dizzy. Shortly thereafter she vomited. states that he brought her to the bedroom where dizziness persisted and she vomited several times more. then contacted EMS and she was transported to emergency department. At this time patient complaint is vague and states that her arms, chest and abdomen hurt. Patient vomited in the emergency department once. Vomitus was yellowish and no blood noted. Onset: Today Duration: Hour(s): Location: Reports: Head, Abdomen Quality: Reports: Ache Severity: Mild Improves with: Reports: None Worsens with: Reports: Movement Associated Symptoms: Reports: Headaches, Nausea/Vomiting - Related Data Allergies Allergy/AdvReac Type Severity Reaction Status Date / Time adhesive tape Allergy SKIN Verified 11/18/17 12:42 BREAKDOWN doxycycline Allergy Other Verified 11/18/17 12:42 gabapentin Allergy Cannot Verified 11/18/17 12:42 Remember Penicillins Allergy Other Verified 11/18/17 12:42 pravastatin sodium Allergy Other Verified 11/18/17 12:42 [From Pravachol] Home Meds: Home Meds Rosuvastatin [Crestor] 10 mg PO BEDTIME 07/03/15 [History] Clopidogrel [Plavix] 75 mg PO DAILY #90 tablet 03/14/17 [Rx] Levothyroxine 25 mcg PO Q2D 11/18/17 [History] Levothyroxine 37.5 mcg PO Q2D 11/18/17 [History] Past Medical History HEENT History: Reports: Cataract, Hard of Hearing, Impaired Vision Cardiovascular History: Reports: Afib, Blood Clots/VTE/DVT, High Cholesterol, Hypertension Respiratory History: Reports: Asthma Gastrointestinal History: Reports: Diverticulosis Genitourinary History: Reports: None, UTI, Recurrent 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 Musculoskeletal History: Reports: Arthritis, Fracture, Fibromyalgia Neurological History: Reports: None, Headaches, Chronic Psychiatric History: Reports: None Endocrine/Metabolic History: Reports: Hypothyroidism Other Endocrine/Metabolic History: Adreanl adenoma Hematologic History: Reports: Anemia Immunologic History: Reports: None Oncologic (Cancer) History: Reports: Basal Cell Carcinoma Dermatologic History: Reports: Other (See Below) Other Dermatologic History: basal cell cancer - Infectious Disease History Infectious Disease History: Reports: Chicken Pox, Measles, Other (See Below) Other Infectious Disease History: whooping cough - Past Surgical History Head Surgeries/Procedures: Reports: None HEENT Surgical History: Reports: Cataract Surgery GI Surgical History: Reports: Other (See Below) Musculoskeletal Surgical History: Reports: Hip Replacement, Knee Replacement Oncologic Surgical History: Reports: Mastectomy, Other (See Below) Social & Family History - Family History Family Medical History: Noncontributory Cardiac: Reports: Afib - Tobacco Use Smoking Status *Q: Never Smoker Used Tobacco, but Quit: Yes Month Tobacco Last Used: May Second Hand Smoke Exposure: No - Caffeine Use Caffeine Use: Reports: Coffee - Alcohol Use Days Per Week of Alcohol Use: 0 - Recreational Drug Use Recreational Drug Use: No - Living Situation & Occupation Living situation: Reports: Occupation: Retired ED ROS GENERAL - Review of Systems Review Of Systems: ROS reveals no pertinent complaints other than HPI. Constitutional: Reports: No Symptoms HEENT: Reports: Vertigo Respiratory: Reports: No Symptoms Cardiovascular: Reports: No Symptoms Endocrine: Reports: No Symptoms GI/Abdominal: Reports: Abdominal Pain, Nausea, Vomiting. Denies: Black Stool, Bloody Stool, Hematemesis, Hematochezia : Reports: No Symptoms Musculoskeletal: Reports: No Symptoms Skin: Reports: No Symptoms Neurological: Reports: Confusion, Dizziness, Headache Psychiatric: Reports: No Symptoms Hematologic/Lymphatic: Reports: No Symptoms Immunologic: Reports: No Symptoms ED EXAM, GENERAL - Physical Exam Exam: See Below Exam Limited By: Altered Mental Status General Appearance: WD/WN, Anxious, Mild Distress Eye Exam: Bilateral Eye: Normal Inspection Nose: Normal Inspection, Normal Mucosa, No Blood Throat/Mouth: Normal Inspection, Normal Oropharynx, No Airway Compromise Head: Atraumatic, Normocephalic Neck: Normal Inspection, Supple, Non-Tender Respiratory/Chest: No Respiratory Distress, Lungs Clear, Normal Breath Sounds, No Accessory Muscle Use Cardiovascular: Regular Rate, Rhythm, No Murmur GI/Abdominal: Normal Bowel Sounds, Soft, Tender (Family suprapubic), Other ( Minimally suprapubic) Back Exam: Normal Inspection. No: CVA Tenderness (L), CVA Tenderness (R) Extremities: Normal Inspection, No Pedal Edema Neurological: Confused, Disoriented, Slow to Respond Psychiatric: Anxious Skin Exam: Warm, Dry, Intact, Normal Color, No Rash Course - Orders/Labs/Meds Orders: Active Orders 24 hr Category Date Time Status EKG Documentation Completion [RC] ASDIRECTED Care 01/24/18 13:17 Ordered Abdomen 1V Flat [CR] Stat Exams 01/24/18 13:17 Ordered Chest 1V Frontal [CR] Stat Exams 01/24/18 13:17 Ordered Head wo Cont [CT] Stat Exams 01/24/18 13:17 Ordered CBC WITH AUTO DIFF [HEME] Stat Lab 01/24/18 13:17 Ordered COMPREHENSIVE METABOLIC PN,CMP [CHEM] Stat Lab 01/24/18 13:17 Ordered MAGNESIUM [CHEM] Stat Lab 01/24/18 13:17 Ordered T4 FREE [CHEM] Stat Lab 01/24/18 13:17 Ordered TSH ULTRASENSITIVE [CHEM] Stat Lab 01/24/18 13:17 Ordered UA W/MICROSCOPIC [URIN] Stat Lab 01/24/18 13:17 Ordered Sodium Chloride 0.9% @ 999 MLS/HR (1000ml) Med 01/24/18 13:17 Ordered Sodium Chloride 0.9% [Normal Saline] 1,000 ml IV .BOLUS EKG 12 Lead [EK] Routine Ther 01/24/18 13:17 Ordered Medication Orders Sodium Chloride (Normal Saline) 1,000 mls @ 999 mls/hr IV .BOLUS ONE Stop: 01/24/18 14:17 Meds: Medications Generic Name Dose Route Start Last Admin Trade Name Freq PRN Reason Stop Dose Admin Sodium Chloride 1,000 mls @ 999 mls/hr 01/24/18 13:17 Normal Saline IV 01/24/18 14:17 .BOLUS ONE Discontinued Medications Generic Name Dose Route Start Last Admin Trade Name Freq PRN Reason Stop Dose Admin Ondansetron HCl 4 mg 01/24/18 13:17 Zofran IVPUSH 01/24/18 13:18 ONETIME ONE - Radiology Interpretation Free Text/Narrative:: CT head without contrast shows no acute process. Chest x-ray shows no acute cardiopulmonary process. Abdominal 1 view x-ray shows moderate ileus CT Results Date: 01/24/18 CT Results Time: 14:50 - Re-Assessments/Exams Free Text/Narrative Re-Assessment/Exam: 01/24/18 15:14 Patient afebrile, nontoxic appearing, vital signs stable. Patient found to have mild to moderate ileus on plain abdomen films. NG tube placed and CT scan ordered. Case discussed with Rebecca Grove, from [facility] for admission. She will admit and follow. 01/24/18 15:14 Departure - Departure Time of Disposition: 15:20 Disposition: Admitted As Inpatient 67 Condition: Fair Clinical Impression: Ileus, unspecified - Discharge Information Referrals: PCP,Unknown [Primary Care Provider] - Forms: ED Department Discharge - My Orders Last 24 Hours: My Active Orders 01/24/18 13:17 EKG Documentation Completion [RC] ASDIRECTED Abdomen 1V Flat [CR] Stat Chest 1V Frontal [CR] Stat Head wo Cont [CT] Stat CBC WITH AUTO DIFF [HEME] Stat COMPREHENSIVE METABOLIC PN,CMP [CHEM] Stat MAGNESIUM [CHEM] Stat T4 FREE [CHEM] Stat TSH ULTRASENSITIVE [CHEM] Stat UA W/MICROSCOPIC [URIN] Stat Sodium Chloride 0.9% @ 999 MLS/HR (1000ml) Sodium Chloride 0.9% [Normal Saline] 1,000 ml IV .BOLUS EKG 12 Lead [EK] Routine - Assessment/Plan Last 24 Hours: My Active Orders 01/24/18 13:17 EKG Documentation Completion [RC] ASDIRECTED Abdomen 1V Flat [CR] Stat Chest 1V Frontal [CR] Stat Head wo Cont [CT] Stat CBC WITH AUTO DIFF [HEME] Stat COMPREHENSIVE METABOLIC PN,CMP [CHEM] Stat MAGNESIUM [CHEM] Stat T4 FREE [CHEM] Stat TSH ULTRASENSITIVE [CHEM] Stat UA W/MICROSCOPIC [URIN] Stat Sodium Chloride 0.9% @ 999 MLS/HR (1000ml) Sodium Chloride 0.9% [Normal Saline] 1,000 ml IV .BOLUS EKG 12 Lead [EK] Routine Assessment:: Ileus Plan: Admit inpatient to [facility]
[2018-01-24 14:07] LABS: CHLORIDE,CL 103 mmol/L (98-115); SODIUM,NA 140 mmol/L (136-145)
[2018-01-24] MEDS ORDERED: Sodium Chloride 0.9% 50 ML IV SCH (17:45)
[2018-01-24] MEDS ORDERED: Ondansetron 4 MG/2 ML SDV IVPUSH PRN (21:37)
[2018-01-24] MEDS ORDERED: Potassium Chloride 20 MEQ in Premix Bag 2 BAG IV SCH (21:45)
[2018-01-24] MEDS: Metoclopramide 10 MG/2 ML SDV IVPUSH SCH (22:33)
[2018-01-24] MEDS: Potassium Chloride 100 ML IV SCH (22:50)
[2018-01-25] MEDS: Potassium Chloride 100 ML IV SCH (01:00)
--- NOTE | 2018-01-25 01:14 | HP ---
DATE: 01/24/2018 HISTORY OF PRESENT ILLNESS: This is a 77-year-old female who was admitted to [facility] through the emergency department. She was brought in to the ED by her stating that she had become dizzy and had emesis while sitting on her couch earlier in the day. Her requested ambulance services, and she was transported to the ED. During the course of her ED workup, she had a CT of the head completed which was negative. They also did an abdominal CT; report indicated moderate ileus, no other abnormality was identified. There was no free fluid in the pelvis. There was an appearance of free fluid around the spleen, however it was felt that this was motion artifact. No abnormality in the liver or the spleen. Kidney showed no mass or hydronephrosis. The adrenals, mesenteric vessels, aorta, and pancreas showed no acute abnormalities. Pelvis showed no mass or adenopathy. The patient did have lab work completed, a CBC and a panel. Her WBC was 6.0 with a hemoglobin of 15.8. An NG tube had been inserted. After arrival to the floor, she removed the NG herself. She had approximately 100 cc of contents prior to her pulling the NG. PAST MEDICAL HISTORY: Significant for hypercholesterolemia, hypothyroidism, malignant neoplasm on the breast, diverticulosis, osteoarthritis, hepatic steatosis. She has had total knee arthroplasty, adrenal adenoma, inflammatory arthritis. PAST SURGICAL HISTORY: Includes an arthroplastied acetabular proximal/femoral prosthetic replacement of the right hip; cholecystectomy; hysterectomy; bilateral mastectomy; total hip arthroplasty of the left; bilateral total knee joint replacements; cataract extraction. She has had a colonoscopy in the past. SOCIAL HISTORY: Uneventful. No alcohol or smoking usage. FAMILY HISTORY: Noncontributory. ALLERGIES: Include penicillin, doxycycline, gabapentin, Pravachol, and adhesive tape. MEDICATIONS: Her home medications include Indocin 50 mg as needed, Crestor 10 mg at bedtime, Plavix one tablet daily, levothyroxine 25 mcg 1-1/2 tablets daily. She uses lidocaine cream as needed for joint pain. She takes the vitamin D with calcium. She does have Nitrostat sublingual to use as needed, and she has a multivitamin, also Prolia injection. REVIEW OF SYSTEMS: CONSTITUTIONAL: Negative. HEENT: She did have episode of dizziness this morning which now has resolved. No nasal drainage. She does complain of sore throat due to the NG irritation. RESPIRATORY: Denies cough or congestion. CARDIOVASCULAR: No chest pain or palpitations. ABDOMEN/GI: She did have the nausea with the emesis which has now resolved per patient. CT was completed. MUSCULOSKELETAL: History of arthralgia. SKIN: No moles, sores, or open areas. PHYSICAL EXAMINATION: VITAL SIGNS: 139/78, 98.6, 68, and 14 with an O2 sat of 99%. HEENT: Head is normocephalic. Conjunctivae are clear. Nasal mucosa is noted. No nasal drainage. Throat nonerythematous. RESPIRATORY: Lung sounds are clear to auscultation. CARDIOVASCULAR: Heart rate and rhythm are regular. S1, S2. ABDOMEN: Soft at present, nontender in all quadrants. Bowel sounds are present to auscultation. EXTREMITIES: Well-healed scars from previous knee surgical procedures and no lower extremity edema. IMPRESSION/PLAN: Moderate ileus which may be due to hypokalemia. Consulted with Dr. Kristian Recinos at this time. Her oral medications will be held. We will also hold the NG as she has not had any further emesis and currently complains of no nausea or vomiting. Abdomen is soft with bowel sounds present. We are going to replace fluids with normal saline at 100 mL/hour. She will get a potassium cocktail x1 of 40 mEq of KCl per IV and will have 20 of KCl added to her normal saline. Zofran 4 mg q.6 hours as needed, Reglan 10 mg IV q.6 hours. We will repeat an abdominal x- ray in the morning along with a CBC and BMP. /[id number]/MODL MTDD
[2018-01-25] MEDS: NS + KCl 20mEq/L 1,000 ML IV SCH ×3 (04:11→21:32)
[2018-01-25] MEDS: Metoclopramide 10 MG/2 ML SDV IVPUSH SCH ×4 (04:13→21:24)
[2018-01-25 08:25] LABS: CHLORIDE,CL 109 mmol/L (98-115); SODIUM,NA 143 mmol/L (136-145)
--- NOTE | 2018-01-25 14:22 | PCM.SN ---
- Free Text/Narrative Note: This 77-year-old female patient was admitted to [facility] last evening due to a moderate ileus. She had experienced dizziness, nausea and vomiting at home. She was then seen in the ED. A head CT scan was completed and was negative. X-ray and abdominal CT obtained noting the ileus. She was also diagnosed with hypokalemia. She has received potassium supplementation overnight. She had been placed nothing by mouth and is receiving IV fluids along with a few ice chips. Initially patient did have an NG tube however she self removed the tube. Prior to her taking the tube out there was 100 mL of contents. Today she reports that she is feeling much improved. She denies any dizziness although patient is somewhat difficult to assess as it appears she is pleasantly confused. She has had no further complaints of nausea nor has she had any vomiting. She is unable to remember if she has passed flatus. no stool since hospitalization last evening. She is hungry and is requesting something by mouth. Review of systems. H EENT; no complaints of dizziness this a.m., no headache, nasal drainage or sore throat Respiratory; no complaints of cough or congestion Cardiovascular; no complaints of chest pain or palpitations GI; diagnosed with ileus, patient has no complaints of nausea or vomiting this a.m. She is requesting to eat. She has tolerated a few ice chips overnight without any exacerbation of symptoms. Musculoskeletal; no complaints of muscle or joint pain. Physical exam. Vital signs 117/60, 99, 61 and 20. O2 sat is 95%. H EENT; head is normocephalic, conjunctivae clear, no nasal drainage, throat not erythematous. Respiratory; lung sounds clear to auscultation without wheezing rhonchi or rales. Cardiovascular; heart rate and rhythm is regular S1-S2. Abdomen soft, nontender, no distention, bowel sounds are present, slightly hypoactive. Impression and plan. Moderate ileus which may be due to hypokalemia. Follow-up x -ray was obtained this morning. Radiology reports indicate interval improvement since yesterday correlation was made with the CT scan of January 24, 2018. Hypokalemia. Potassium this morning is 3.7 which has improved from 3.1 yesterday. We'll continue with her IV potassium supplementation. Patient's activity will be increased and she will be advanced to clear liquid diet today. We will evaluate her tolerance to the changes. We will continue with her IV fluids of normal saline and 20 mEq of KCl. Follow-up lab work in the AM. Remaining home medications will continue to be held until she is able to tolerate oral intake.
[2018-01-25] MEDS ORDERED: Clopidogrel 75 MG Tab PO ONE (18:20)
[2018-01-25] MEDS ORDERED: Potassium Chloride 100 ML ONE (22:27)
[2018-01-26] MEDS: NS + KCl 20mEq/L 1,000 ML IV SCH (04:22)
[2018-01-26] MEDS: Metoclopramide 10 MG/2 ML SDV IVPUSH SCH ×3 (04:22→15:53)
[2018-01-26] MEDS ORDERED: Iopamidol 612 MG/ML 75 ML Bottle IV PRN (07:26)
[2018-01-26] MEDS ORDERED: Levothyroxine 25 MCG Tab PO SCH (07:30)
[2018-01-26 08:09] LABS: CHLORIDE,CL 113 mmol/L (98-115); SODIUM,NA 145 mmol/L (136-145)
[2018-01-26] MEDS ORDERED: Clopidogrel 75 MG Tab PO SCH (09:00)
[2018-01-26] MEDS ORDERED: Sodium Chloride 0.9% 5 ML Syringe FLUSH PRN (10:07)
[2018-01-26 11:18] VITALS: BP 120/63
--- NOTE | 2018-01-27 10:12 | PCM.DCSUM1 ---
Discharge Summary - Discharge Data Discharge Date: 01/26/18 Discharge Disposition: Home, Self-Care 01 Condition: Good - Patient Summary/Data Complications: Ileus resolved, Hospital Course: See back page - Patient Instructions Diet, Other: Full liquids to soft diet Activity, Other: Gentle exercises, walking Driving: May Drive Today Showering/Bathing: May Shower Notify Provider of: Fever, Nausea and/or Vomiting - Discharge Plan Home Medications: Home Meds Rosuvastatin [Crestor] 10 mg PO BEDTIME 07/03/15 [History] Clopidogrel [Plavix] 75 mg PO DAILY #90 tablet 03/14/17 [Rx] Levothyroxine 37.5 mcg PO ACBREAKFAST 11/18/17 [History] Calcium Carbonate/Vitamin D3 [Calcium 600 + Vit D 200] 1 tab PO DAILY 01/24/18 [ History] Cholecalciferol (Vitamin D3) [Vitamin D] 100 units PO DAILY 01/24/18 [History] Denosumab [Prolia] 60 mg SUBCUT Q6M 01/24/18 [History] Lidocaine 4% [LMX 4] 15 g TOP TID PRN 01/24/18 [History] Multivitamin [Multiple Vitamins] 1 each PO DAILY 01/24/18 [History] Nitroglycerin 0.4 mg PO ASDIRECTED PRN 01/24/18 [History] Referrals: Guerrero Corona, [employer] [Nurse Practitioner] - (Earlier this week no later than Friday) PCP,Unknown [Ordering Only Provider] - - Discharge Summary/Plan Comment DC Time >30 min.: No Discharge Summary/Plan Comment: Brief history and hospital summary; this 77-year-old patient was admitted to [facility] due to a moderate ileus. She had experienced dizziness, nausea and vomiting at home. She was then seen in the ED. A head CT scan was completed and was negative. X-ray and abdominal CT obtained noting the ileus. She was also diagnosed with hypokalemia. She has received potassium supplementation throughout her hospital stay. She was placed nothing by mouth and received IV fluids. Initially patient did have an NG tube however she accidentally pulled it out. Prior to her taking the tube out there was 100 mL of contents. He had been given Reglan and did start having bowel movements prior to discharge. Her diet was advanced without any nausea or any abdominal distention. Upon discharge she had good bowel tones with no distention. Abdomen soft, nontender, no distention, bowel sounds are present, very active Final diagnosis Ileus, resolved. Hypokalemia. Resolved, - Patient Data Vitals - Most Recent: Last Vital Signs Temp 96.6 F 01/26/18 11:00 Pulse 63 01/26/18 11:00 Resp 18 01/26/18 11:00 BP 120/63 01/26/18 11:00 Pulse Ox 98 01/26/18 11:00 Weight - Most Recent: 159 lb 12.8 oz Med Orders - Current: Current Medications Discontinued Medications Clopidogrel Bisulfate (Plavix) 75 mg PO ONETIME ONE Stop: 01/25/18 18:21 Last Admin: 01/25/18 18:34 Dose: 75 mg Clopidogrel Bisulfate (Plavix) 75 mg PO DAILY [facility] Last Admin: 01/26/18 09:37 Dose: 75 mg Sodium Chloride (Normal Saline) 1,000 mls @ 999 mls/hr IV .BOLUS ONE Stop: 01/24/18 14:17 Last Admin: 01/24/18 13:22 Dose: 999 mls/hr Potassium Chloride 20 meq/ (Premix) 0 mls @ 50 mls/hr IV ASDIRECTED [facility] Potassium Chloride/Sodium Chloride (Normal Saline With 20 Meq Kcl) 1,000 mls @ 100 mls/hr IV ASDIRECTED [facility] Last Admin: 01/25/18 14:11 Dose: 100 mls/hr Potassium Chloride (Kcl 20 Meq In Water 100 Ml) 100 mls @ 50 mls/hr IV Q2H [facility] Stop: 01/25/18 01:59 Last Admin: 01/25/18 01:00 Dose: 50 mls/hr Potassium Chloride/Sodium Chloride (Normal Saline With 20 Meq Kcl) 1,000 mls @ 50 mls/hr IV ASDIRECTED [facility] Last Admin: 01/26/18 04:22 Dose: 50 mls/hr Potassium Chloride (Kcl 20 Meq In Water 100 Ml) Confirm Administered Dose 100 mls @ as directed .ROUTE .STK-MED ONE Stop: 01/25/18 22:28 Last Admin: 01/25/18 23:14 Dose: Not Given Sodium Chloride (Normal Saline) 50 mls @ 2 mls/sec IV ASDIRECTED [facility] Last Admin: 01/24/18 17:45 Dose: 2 mls/sec Iopamidol (Isovue-300 (61%)) 75 ml IV . DIRECTED PRN PRN Reason: FOR RADIOLOGY EXAM Last Admin: 01/24/18 17:45 Dose: 75 ml Levothyroxine Sodium (Levothyroxine) 37.5 mcg PO ACBREAKFAST [facility] Last Admin: 01/26/18 07:43 Dose: 37.5 mcg Metoclopramide HCl (Reglan) 10 mg IVPUSH Q6H [facility] Last Admin: 01/26/18 15:53 Dose: Not Given Ondansetron HCl (Zofran) 4 mg IVPUSH ONETIME ONE Stop: 01/24/18 13:18 Last Admin: 01/24/18 13:22 Dose: 4 mg Ondansetron HCl (Zofran) 4 mg IVPUSH Q6H PRN PRN Reason: Nausea/Vomiting Sodium Chloride (Syrex Flush) 5 ml FLUSH Q8HR PRN PRN Reason: Keep Vein Open *Q Meaningful Use (DIS) - VTE *Q VTE Criteria *Q: - Stroke *Q Stroke Criteria *Q: - AMI *Q AMI Criteria *Q:
== END 2018-01-26 16:15 | disposition home or self-care (01) | DRG 390 ==
LOC: KA.ED 12:58 → KA.MS 15:15
PROVIDERS: ADMIT Physician Assistant Surgical; ATTEND Physician Assistant Medical
DX: K56.7 Ileus, unspecified (principal); E87.6 Hypokalemia; I48.91 Unspecified atrial fibrillation; I10 Essential (primary) hypertension; E78.00 Pure hypercholesterolemia, unspecified; E03.9 Hypothyroidism, unspecified; H54.7 Unspecified visual loss; H91.90 Unspecified hearing loss, unspecified ear; M19.90 Unspecified osteoarthritis, unspecified site; Z96.653 Presence of artificial knee joint, bilateral; Z96.643 Presence of artificial hip joint, bilateral; Z87.891 Personal history of nicotine dependence; Z88.0 Allergy status to penicillin; Z88.1 Allergy status to other antibiotic agents; Z88.8 Allergy status to other drugs, medicaments and biological substances; Z91.048 Other nonmedicinal substance allergy status; Z79.02 Long term (current) use of antithrombotics/antiplatelets; Z79.899 Other long term (current) drug therapy
CPT/HCPCS: 36415; 70450; 71045; 74018; 74177; 80053; 81001; 83735; 84439; 84443; 84484; 85025; 93005; 96360; 96361; 96374; 99285; J2405; J7030; 80048; A9270-GY; J2765; J3480; J7050; Q9967

== ENCOUNTER 2018-12-26 09:24 | Emergency (ER) | payer MEDICARE ==
--- NOTE | 2018-12-26 10:24 | EDM.PDOC ---
ED HPI GENERAL MEDICAL PROBLEM - General Chief Complaint: General Stated Complaint: RIGHT SIDE ABDOMINAL PAIN Time Seen by Provider: 12/26/18 10:00 Source of Information: Reports: Patient, Family ( and son) History Limitations: Reports: No Limitations - History of Present Illness INITIAL COMMENTS - FREE TEXT/NARRATIVE: Patient brought to ER with abdominal pain that started when she awoke to use the bathroom at 0300 this morning. She says it started on the lower left side but is now mostly lower right side and upper right. She denies nausea, vomiting , diarrhea or constipation. Says she has had dysuria a couple times recently but no history of kidney stones or kidney disease. 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 Also history of diverticulitis and thinks that it was the cause 6 months ago when she had similar symptoms as today. Denies blood in stool. History of hysterectomy and cholecystectomy. Pt states that there is very little pain when she is lying there without me checking her abdomen. Abdomen Pain Score (Numeric/FACES): 8 - Related Data Allergies Allergy/AdvReac Type Severity Reaction Status Date / Time adhesive tape Allergy SKIN Verified 12/26/18 10:10 BREAKDOWN doxycycline Allergy Other Verified 12/26/18 10:10 gabapentin Allergy Cannot Verified 12/26/18 10:10 Remember Penicillins Allergy Other Verified 12/26/18 10:10 pravastatin sodium Allergy Other Verified 12/26/18 10:10 [From Pravachol] Home Meds: Home Meds . 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 Musculoskeletal History: Reports: Arthritis, Fracture, Fibromyalgia Neurological History: Reports: None, Headaches, Chronic Psychiatric History: Reports: Dementia Endocrine/Metabolic History: Reports: Hypothyroidism Other Endocrine/Metabolic History: Adreanl adenoma Hematologic History: Reports: Anemia Immunologic History: Reports: None Oncologic (Cancer) History: Reports: Basal Cell Carcinoma Dermatologic History: Reports: Other (See Below) Other Dermatologic History: basal cell cancer - Infectious Disease History Infectious Disease History: Reports: Chicken Pox, Measles, Other (See Below) Other Infectious Disease History: whooping cough - Past Surgical History Head Surgeries/Procedures: Reports: None HEENT Surgical History: Reports: Cataract Surgery GI Surgical History: Reports: Other (See Below) Musculoskeletal Surgical History: Reports: Hip Replacement, Knee Replacement Oncologic Surgical History: Reports: Mastectomy Social & Family History - Family History Family Medical History: Noncontributory Cardiac: Reports: Afib - Tobacco Use Smoking Status *Q: Never Smoker Second Hand Smoke Exposure: No - Caffeine Use Caffeine Use: Reports: Coffee - Recreational Drug Use Recreational Drug Use: No - Living Situation & Occupation Living situation: Reports: Occupation: Retired ED ROS GENERAL - Review of Systems Review Of Systems: See Below Constitutional: Denies: Fever, Chills, Malaise, Weakness, Diaphoresis HEENT: Denies: Ear Discharge, Ear Pain, Throat Pain Respiratory: Denies: Shortness of Breath, Wheezing, Cough Cardiovascular: Denies: Chest Pain, Lightheadedness, Syncope GI/Abdominal: Reports: Abdominal Pain. Denies: Black Stool, Bloody Stool, Constipation, Diarrhea, Decreased Appetite, Distension, Hematochezia, Nausea, Vomiting : Reports: Dysuria, Flank Pain. Denies: Discharge, Frequency, Hematuria Musculoskeletal: Denies: Neck Pain, Shoulder Pain, Arm Pain, Back Pain, Hand Pain Skin: Denies: Cyanosis, Jaundice, Mottled, Pallor, Diaphoresis Neurological: Reports: Confusion (mild-moderate baseline dementia; no recent change). Denies: Headache, Seizure, Syncope, Trouble Speaking, Weakness Psychiatric: Denies: Agitation, Anxiety Hematologic/Lymphatic: Denies: Anemia, Easy Bleeding ED EXAM, GENERAL - Physical Exam Exam: See Below Exam Limited By: No Limitations General Appearance: Alert, WD/WN, No Apparent Distress Eye Exam: Bilateral Eye: EOMI, Normal Inspection, PERRL Ears: Normal External Exam, Hearing Grossly Normal Nose: Normal Inspection, No Blood Throat/Mouth: Normal Inspection, Normal Lips, Normal Voice, No Airway Compromise Head: Atraumatic, Normocephalic Neck: Normal Inspection, Full Range of Motion Respiratory/Chest: No Respiratory Distress, Lungs Clear, Normal Breath Sounds, No Accessory Muscle Use, Chest Non-Tender Cardiovascular: Normal Peripheral Pulses, Regular Rate, Rhythm, No Edema, No Gallop, No JVD, No Murmur, No Rub GI/Abdominal: Normal Bowel Sounds, Soft, No Organomegaly, No Distention, No Abnormal Bruit, No Mass, Tender (Quite tender even to very light palpation of outer quadrants and flanks, especially right LLQ and right CVA.) Back Exam: Full Range of Motion, CVA Tenderness (L), CVA Tenderness (R) (worse) Extremities: Normal Inspection, Normal Range of Motion, Non-Tender, No Pedal Edema, Normal Capillary Refill Neurological: Alert, Oriented, No Motor/Sensory Deficits Psychiatric: Normal Affect, Normal Mood Skin Exam: Warm, Dry, Intact, Normal Color, No Rash Course - Vital Signs Last Recorded V/S: Last Vital Signs Temp 99.1 F 12/26/18 09:56 Pulse 71 12/26/18 11:19 Resp 20 12/26/18 11:19 BP 136/61 12/26/18 11:19 Pulse Ox 99 12/26/18 11:19 - Orders/Labs/Meds Labs: Laboratory Tests 12/26/18 12/26/18 12/26/18 Range/Units 09:40 09:45 09:45 WBC 6.32 (5.00-10.00) 10^3/uL RBC 4.90 (3.80-5.50) 10^6/uL Hgb 14.8 (12.0-16.0) g/dL Hct 44.1 (37.0-47.0) % MCV 90.0 (82.0-92.0) fL MCH 30.2 (27.0-31.0) pg MCHC 33.6 (32.0-36.0) g/dL RDW 13.0 (11.5-14.5) % Plt Count 226 (150-400) 10^3/uL MPV 9.1 (7.4-10.4) fL Immature Gran % (Auto) 0.2 (0.0-5.0) % Neut % (Auto) 59.2 (50.0-70.0) % Lymph % (Auto) 28.8 (20.0-40.0) % [place] % (Auto) 10.1 H (2.0-8.0) % Eos % (Auto) 1.1 (1.0-3.0) % Baso % (Auto) 0.6 (0.0-1.0) % Immature Gran # (Auto) 0.01 (0.00-0.50) 10^3/uL Neut # (Auto) 3.74 (2.50-7.00) 10^3/uL Lymph # (Auto) 1.82 (1.00-4.00) 10^3/uL [place] # (Auto) 0.64 (0.10-0.80) 10^3/uL Eos # (Auto) 0.07 L (0.10-0.30) 10^3/uL Baso # (Auto) 0.04 (0.00-0.10) 10^3/uL Sodium 143 (136-145) mmol/L Potassium 3.8 (3.3-5.3) mmol/L Chloride 107 (98-115) mmol/L Carbon Dioxide 25.8 (21.0-32.0) mmol/L Anion Gap 14.0 (5-15) mmol/L BUN 12 (6-25) mg/dL Creatinine 0.76 (0.51-1.17) mg/dL Est Cr Clr Drug Dosing TNP Estimated GFR (MDRD) > 60 mL/min Glucose 101 H (75 - 99) mg/dL Calcium 8.9 (8.7-10.3) mg/dL Total Bilirubin 0.4 (0.2-1.0) mg/dL AST 24 (15-37) U/L ALT 36 (12-78) U/L Alkaline Phosphatase 35 L (46-116) IU/L C-Reactive Protein (0.0-0.9) mg/dL Total Protein 7.1 (6.4-8.2) g/dL Albumin 3.95 (3.00-4.80) g/dL Lipase 183 (73-393) U/L Specimen Type Urinvoid Urine Color Yellow (YELLOW) Urine Appearance Clear (CLEAR) Urine pH 7.0 (5.0-9.0) Ur Specific [place] 1.020 (1.005-1.030) Urine Protein Negative (NEGATIVE) mg/dL Urine Glucose (UA) Negative (NEGATIVE) mg/dL Urine Ketones Negative (NEGATIVE) mg/dL Urine Occult Blood Negative (NEGATIVE) Urine Nitrite Negative (NEGATIVE) Urine Bilirubin Negative (NEGATIVE) Urine Urobilinogen 0.2 (0.2-1.0) E.U./dL Ur Leukocyte Esterase Negative (NEGATIVE) Urine RBC Not seen (0-5) /HPF Urine WBC 0-5 (0-5) /HPF Ur Epithelial Cells Many H /LPF Urine Bacteria Not seen (NONE TO FEW) /HPF Urine Mucus Few H (NEGATIVE) /LPF 12/26/18 Range/Units 09:45 WBC (5.00-10.00) 10^3/uL RBC (3.80-5.50) 10^6/uL Hgb (12.0-16.0) g/dL Hct (37.0-47.0) % MCV (82.0-92.0) fL MCH (27.0-31.0) pg MCHC (32.0-36.0) g/dL RDW (11.5-14.5) % Plt Count (150-400) 10^3/uL MPV (7.4-10.4) fL Immature Gran % (Auto) (0.0-5.0) % Neut % (Auto) (50.0-70.0) % Lymph % (Auto) (20.0-40.0) % [place] % (Auto) (2.0-8.0) % Eos % (Auto) (1.0-3.0) % Baso % (Auto) (0.0-1.0) % Immature Gran # (Auto) (0.00-0.50) 10^3/uL Neut # (Auto) (2.50-7.00) 10^3/uL Lymph # (Auto) (1.00-4.00) 10^3/uL [place] # (Auto) (0.10-0.80) 10^3/uL Eos # (Auto) (0.10-0.30) 10^3/uL Baso # (Auto) (0.00-0.10) 10^3/uL Sodium (136-145) mmol/L Potassium (3.3-5.3) mmol/L Chloride (98-115) mmol/L Carbon Dioxide (21.0-32.0) mmol/L Anion Gap (5-15) mmol/L BUN (6-25) mg/dL Creatinine (0.51-1.17) mg/dL Est Cr Clr Drug Dosing Estimated GFR (MDRD) mL/min Glucose (75 - 99) mg/dL Calcium (8.7-10.3) mg/dL Total Bilirubin (0.2-1.0) mg/dL AST (15-37) U/L ALT (12-78) U/L Alkaline Phosphatase (46-116) IU/L C-Reactive Protein < 0.6 (0.0-0.9) mg/dL Total Protein (6.4-8.2) g/dL Albumin (3.00-4.80) g/dL Lipase (73-393) U/L Specimen Type Urine Color (YELLOW) Urine Appearance (CLEAR) Urine pH (5.0-9.0) Ur Specific [place] (1.005-1.030) Urine Protein (NEGATIVE) mg/dL Urine Glucose (UA) (NEGATIVE) mg/dL Urine Ketones (NEGATIVE) mg/dL Urine Occult Blood (NEGATIVE) Urine Nitrite (NEGATIVE) Urine Bilirubin (NEGATIVE) Urine Urobilinogen (0.2-1.0) E.U./dL Ur Leukocyte Esterase (NEGATIVE) Urine RBC (0-5) /HPF Urine WBC (0-5) /HPF Ur Epithelial Cells /LPF Urine Bacteria (NONE TO FEW) /HPF Urine Mucus (NEGATIVE) /LPF Meds: Medications Discontinued Medications Generic Name Dose Route Start Last Admin Trade Name eKvin PRN Reason Stop Dose Admin Sodium Chloride 1,000 mls @ 999 mls/hr 12/26/18 10:38 12/26/18 11:06 Normal Saline IV 12/26/18 11:38 999 mls/hr .BOLUS ONE Administration - Re-Assessments/Exams Free Text/Narrative Re-Assessment/Exam: 12/26/18 11:46 CBC, CMP, UA, CRP, Lipase all very normal. CT shows no sign of diverticulitis or ileus as in the past and no other acute process. I called Dr. Sexton ( radiologist) to confirm that there is no sign of ileus since she had that 11 months ago. A liter of fluids is in. Re-examination of abdomen and flanks reveals pain with even light touch of skin that seems out of proportion to overall appearance and I feel is possibly related to her dementia/cognitive impairment. She says the abdominal pain in the RLQ has been present for a year with occasional flare-ups like this. She has been diagnosed and treated for fibromyalgia in the past but is allergic to gabapentin and other treatments were discontinued by her previous PCP. She got up and walked the del cid without discomfort or pain. We discussed findings and treatment plan. She feels like she is ready to go home. I feel this is reasonable also and advised followup with her PCP on Friday. Patient discharged to home in stable condition. Departure - Departure Time of Disposition: 12:05 Disposition: Home, Self-Care 01 Condition: Good Clinical Impression: Abdominal pain Qualifiers: Abdominal location: right lower quadrant Qualified Code(s): R10.31 - Right lower quadrant pain - Discharge Information Instructions: Abdominal Pain, Adult, [id number] Referrals: Melo Soto PA-C [Primary Care Provider] - Forms: ED Department Discharge Additional Instructions: 1. Drink 8 cups of water daily. 2. Follow up with your PCP on Friday. 3. Go to ER as needed for worsening.
[2018-12-26 10:28] LABS: CHLORIDE,CL 107 mmol/L (98-115); SODIUM,NA 143 mmol/L (136-145)
[2018-12-26] MEDS ORDERED: Sodium Chloride 0.9% 1,000 ML IV ONE (10:38)
[2018-12-26 11:20] VITALS: BP 136/61
--- NOTE | 2018-12-26 11:39 | CT ---
[id number] CT/CT Abdomen Pelvis W IV EXAM: CT Abdomen Pelvis W IV CLINICAL DATA: ABDOMINAL PAIN COMPARISON: CORRELATION IS MADE WITH THE EXAM OF JANUARY 24, 2018. FINDINGS: There is no free air or free fluid. There is diverticulosis with no diverticulitis. The hip prostheses result in streak artifact. The appendix appears normal. The pelvis shows no mass, abscess, or adenopathy. The uterus and ovaries not seen. There is a horseshoe kidney. The gallbladder has been removed. There is a small hiatal hernia. The liver and spleen show no acute abnormalities. The adrenals, aorta, and pancreas show no acute abnormalities also. There is a tiny right renal cyst. IMPRESSION: NO ACUTE PROCESS. Chucho Sexton MD 12/26/18 [id number] Thank you for allowing us to participate in the care of your patient.
[2018-12-28] MEDS ORDERED: Iopamidol 755 Mg/ML 75 ML Bottle IVPUSH ONE (09:26)
[2018-12-28] MEDS ORDERED: Sodium Chloride 0.9% 50 ML IV SCH (09:30)
== END 2018-12-26 12:20 | disposition home or self-care (01) ==
LOC: KA.ED 09:24
DX: R10.31 Right lower quadrant pain (principal); I10 Essential (primary) hypertension; E78.00 Pure hypercholesterolemia, unspecified; I48.91 Unspecified atrial fibrillation; E03.9 Hypothyroidism, unspecified; Z88.0 Allergy status to penicillin; Z91.09 Other allergy status, other than to drugs and biological substances
CPT/HCPCS: 36415; 74177; 80053; 81001; 83690; 85025; 86140; 96360; 99284; J7030; J7050; Q9967

== ENCOUNTER 2019-04-27 20:20 | Observation (INO) | payer MEDICARE ==
[2019-04-27] MEDS: Sodium Chloride 0.9% 1,000 ML IV ONE (20:45)
[2019-04-27 21:06] LABS: ANION GAP 17.4 mmol/L (5-15); CHLORIDE,CL 107 mmol/L (98-115); SODIUM,NA 142 mmol/L (136-145)
--- NOTE | 2019-04-27 21:27 | EDM.PDOC ---
ED HPI GENERAL MEDICAL PROBLEM - General Chief Complaint: Abdominal Pain Stated Complaint: ABDOMINAL PAIN Time Seen by Provider: 04/27/19 20:56 Source of Information: Reports: Patient, Significant Other History Limitations: Reports: No Limitations - History of Present Illness INITIAL COMMENTS - FREE TEXT/NARRATIVE: Patient presents with abdominal pain, dysuria and polyuria since this morning. She also has a mild fever. She denies diarrhea, vomiting. She has a history of diverticulitis. She has trouble describing the abdominal pain with her dementia but it seem to be quite diffuse. Her tells me that she has had a lot of beans and vegetables the past two days. - Related Data Allergies Allergy/AdvReac Type Severity Reaction Status Date / Time adhesive tape Allergy SKIN Verified 04/27/19 20:55 BREAKDOWN doxycycline Allergy Other Verified 04/27/19 20:55 gabapentin Allergy Cannot Verified 04/27/19 20:55 Remember Penicillins Allergy Other Verified 04/27/19 20:55 pravastatin sodium Allergy Other Verified 04/27/19 20:55 [From Pravachol] Home Meds: Home Meds . 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 Musculoskeletal History: Reports: Arthritis, Fracture, Fibromyalgia Neurological History: Reports: None, Headaches, Chronic Psychiatric History: Reports: Dementia Endocrine/Metabolic History: Reports: Hypothyroidism Other Endocrine/Metabolic History: Adreanl adenoma Hematologic History: Reports: Anemia Immunologic History: Reports: None Oncologic (Cancer) History: Reports: Basal Cell Carcinoma Dermatologic History: Reports: Other (See Below) Other Dermatologic History: basal cell cancer - Infectious Disease History Infectious Disease History: Reports: Chicken Pox, Measles, Other (See Below) Other Infectious Disease History: whooping cough - Past Surgical History Head Surgeries/Procedures: Reports: None HEENT Surgical History: Reports: Cataract Surgery GI Surgical History: Reports: Other (See Below) Musculoskeletal Surgical History: Reports: Hip Replacement, Knee Replacement Oncologic Surgical History: Reports: Mastectomy Social & Family History - Family History Family Medical History: Noncontributory Cardiac: Reports: Afib - Tobacco Use Smoking Status *Q: Never Smoker - Caffeine Use Caffeine Use: Reports: Coffee - Recreational Drug Use Recreational Drug Use: No - Living Situation & Occupation Living situation: Reports: Occupation: Retired ED ROS GENERAL - Review of Systems Review Of Systems: See Below Constitutional: Reports: Fever. Denies: Malaise, Weakness HEENT: Reports: No Symptoms Respiratory: Denies: Shortness of Breath, Cough Cardiovascular: Denies: Chest Pain, Lightheadedness, Syncope Endocrine: Reports: Polyuria GI/Abdominal: Reports: Abdominal Pain, Flatus. Denies: Diarrhea, Nausea, Vomiting : Reports: Dysuria, Flank Pain, Frequency Musculoskeletal: Reports: No Symptoms Skin: Denies: Cyanosis, Jaundice, Mottled, Pallor, Diaphoresis Neurological: Denies: Headache, Seizure, Syncope, Trouble Speaking Psychiatric: Denies: Agitation ED EXAM, GI/ABD - Physical Exam Exam: See Below Exam Limited By: No Limitations General Appearance: Alert, WD/WN, No Apparent Distress Eyes: Bilateral: Normal Appearance, EOMI Ears: Normal External Exam, Hearing Grossly Normal Nose: Normal Inspection, No Blood Throat/Mouth: Normal Inspection, Normal Lips, Normal Voice, No Airway Compromise Head: Atraumatic, Normocephalic Neck: Normal Inspection, Full Range of Motion Respiratory/Chest: No Respiratory Distress, Lungs Clear, Normal Breath Sounds, No Accessory Muscle Use Cardiovascular: Normal Peripheral Pulses, Regular Rate, Rhythm, No Murmur GI/Abdominal Exam: Normal Bowel Sounds, Distended, Guarding, Tender (quite general especially upper and outer quadrants). No: Rigid Back Exam: CVA Tenderness (L), CVA Tenderness (R) Extremities: Normal Inspection, Normal Range of Motion, Non-Tender Neurological: Alert, Oriented, No Motor/Sensory Deficits Psychiatric: Normal Affect, Normal Mood Skin Exam: Warm, Dry, Intact, Normal Color, No Rash Course - Vital Signs Last Recorded V/S: Last Vital Signs Temp 99.3 F 04/27/19 20:43 Pulse 70 04/27/19 22:13 Resp 22 H 04/27/19 22:13 BP 131/56 L 04/27/19 22:13 Pulse Ox 96 04/27/19 22:13 - Orders/Labs/Meds Orders: Active Orders 24 hr Category Date Time Status Patient Status Manage Transfer [TRANSFER] Routine ADT 04/27/19 23:06 Ordered Patient Status [ADT] Routine ADT 04/27/19 23:05 Ordered Abdomen Pelvis w Cont [CT] Stat Exams 04/27/19 21:30 Taken CULTURE URINE [RM] Stat Lab 04/27/19 20:47 Received Nasogastric Orogastric Tube Insertion [OM.PC] Routine Oth 04/27/19 23:00 Ordered Resuscitation Status Routine Resus Stat 04/27/19 23:11 Ordered Labs: Laboratory Tests 04/27/19 04/27/19 04/27/19 Range/Units 20:31 20:31 20:31 WBC 7.39 (5.00-10.00) 10^3/uL RBC 5.14 (3.80-5.50) 10^6/uL Hgb 15.9 (12.0-16.0) g/dL Hct 45.8 (37.0-47.0) % MCV 89.1 (82.0-92.0) fL MCH 30.9 (27.0-31.0) pg MCHC 34.7 (32.0-36.0) g/dL RDW 12.7 (11.5-14.5) % Plt Count 245 (150-400) 10^3/uL MPV 9.2 (7.4-10.4) fL Immature Gran % (Auto) 0.1 (0.0-5.0) % Neut % (Auto) 57.7 (50.0-70.0) % Lymph % (Auto) 29.6 (20.0-40.0) % [place] % (Auto) 10.6 H (2.0-8.0) % Eos % (Auto) 1.6 (1.0-3.0) % Baso % (Auto) 0.4 (0.0-1.0) % Immature Gran # (Auto) 0.01 (0.00-0.50) 10^3/uL Neut # (Auto) 4.26 (2.50-7.00) 10^3/uL Lymph # (Auto) 2.19 (1.00-4.00) 10^3/uL [place] # (Auto) 0.78 (0.10-0.80) 10^3/uL Eos # (Auto) 0.12 (0.10-0.30) 10^3/uL Baso # (Auto) 0.03 (0.00-0.10) 10^3/uL Sodium 142 (136-145) mmol/L Potassium 3.9 (3.3-5.3) mmol/L Chloride 107 (98-115) mmol/L Carbon Dioxide 21.5 (21.0-32.0) mmol/L Anion Gap 17.4 H (5-15) mmol/L BUN 16 (6-25) mg/dL Creatinine 0.85 (0.51-1.17) mg/dL Est Cr Clr Drug Dosing 47.86 mL/min Estimated GFR (MDRD) > 60 mL/min Glucose 101 H (75 - 99) mg/dL Calcium 9.9 (8.7-10.3) mg/dL Total Bilirubin 0.5 (0.2-1.0) mg/dL AST 35 (15-37) U/L ALT 41 (12-78) U/L Alkaline Phosphatase 49 (46-116) IU/L C-Reactive Protein 0.5 (0.0-0.9) mg/dL Total Protein 7.8 (6.4-8.2) g/dL Albumin 4.08 (3.00-4.80) g/dL Specimen Type Urine Color (YELLOW) Urine Appearance (CLEAR) Urine pH (5.0-9.0) Ur Specific [place] (1.005-1.030) Urine Protein (NEGATIVE) mg/dL Urine Glucose (UA) (NEGATIVE) mg/dL Urine Ketones (NEGATIVE) mg/dL Urine Occult Blood (NEGATIVE) Urine Nitrite (NEGATIVE) Urine Bilirubin (NEGATIVE) Urine Urobilinogen (0.2-1.0) E.U./dL Ur Leukocyte Esterase (NEGATIVE) Urine RBC (0-5) /HPF Urine WBC (0-5) /HPF Ur Epithelial Cells /LPF Urine Bacteria (NONE TO FEW) /HPF 04/27/19 Range/Units 20:47 WBC (5.00-10.00) 10^3/uL RBC (3.80-5.50) 10^6/uL Hgb (12.0-16.0) g/dL Hct (37.0-47.0) % MCV (82.0-92.0) fL MCH (27.0-31.0) pg MCHC (32.0-36.0) g/dL RDW (11.5-14.5) % Plt Count (150-400) 10^3/uL MPV (7.4-10.4) fL Immature Gran % (Auto) (0.0-5.0) % Neut % (Auto) (50.0-70.0) % Lymph % (Auto) (20.0-40.0) % [place] % (Auto) (2.0-8.0) % Eos % (Auto) (1.0-3.0) % Baso % (Auto) (0.0-1.0) % Immature Gran # (Auto) (0.00-0.50) 10^3/uL Neut # (Auto) (2.50-7.00) 10^3/uL Lymph # (Auto) (1.00-4.00) 10^3/uL [place] # (Auto) (0.10-0.80) 10^3/uL Eos # (Auto) (0.10-0.30) 10^3/uL Baso # (Auto) (0.00-0.10) 10^3/uL Sodium (136-145) mmol/L Potassium (3.3-5.3) mmol/L Chloride (98-115) mmol/L Carbon Dioxide (21.0-32.0) mmol/L Anion Gap (5-15) mmol/L BUN (6-25) mg/dL Creatinine (0.51-1.17) mg/dL Est Cr Clr Drug Dosing mL/min Estimated GFR (MDRD) mL/min Glucose (75 - 99) mg/dL Calcium (8.7-10.3) mg/dL Total Bilirubin (0.2-1.0) mg/dL AST (15-37) U/L ALT (12-78) U/L Alkaline Phosphatase (46-116) IU/L C-Reactive Protein (0.0-0.9) mg/dL Total Protein (6.4-8.2) g/dL Albumin (3.00-4.80) g/dL Specimen Type . Urine Color Light yellow (YELLOW) Urine Appearance Clear (CLEAR) Urine pH 7.0 (5.0-9.0) Ur Specific [place] 1.010 (1.005-1.030) Urine Protein Negative (NEGATIVE) mg/dL Urine Glucose (UA) Negative (NEGATIVE) mg/dL Urine Ketones Negative (NEGATIVE) mg/dL Urine Occult Blood Negative (NEGATIVE) Urine Nitrite Negative (NEGATIVE) Urine Bilirubin Negative (NEGATIVE) Urine Urobilinogen 0.2 (0.2-1.0) E.U./dL Ur Leukocyte Esterase Trace H (NEGATIVE) Urine RBC 0-5 (0-5) /HPF Urine WBC 5-10 H (0-5) /HPF Ur Epithelial Cells Moderate H /LPF Urine Bacteria Not seen (NONE TO FEW) /HPF Meds: Medications Discontinued Medications Generic Name Dose Route Start Last Admin Trade Name Freq PRN Reason Stop Dose Admin Sodium Chloride 1,000 mls @ 999 mls/hr 04/27/19 20:40 04/27/19 20:45 Normal Saline IV 04/27/19 21:40 999 mls/hr .BOLUS ONE Administration Sodium Chloride 50 mls @ 3 mls/sec 04/27/19 21:27 04/27/19 22:09 Normal Saline IV 04/27/19 21:28 3 mls/sec ASDIRECTED ONE Administration Iopamidol 100 ml 04/27/19 21:27 04/27/19 22:08 Isovue-300 (61%) IVPUSH 04/27/19 21:28 75 ml ONETIME ONE Administration - Re-Assessments/Exams Free Text/Narrative Re-Assessment/Exam: 04/27/19 23:00 Labs look pretty good. UA shows trace leukocyte esterase so will culture. CT shows low grade SBO. I discussed results with radiologist for more detail and he thinks it may be partial obstruction vs ileus; he doesn't think it looks surgical at this point. Patient has been passing a lot of gas the last hour but she is still quite tender to light palpation generally over upper and outer quadrants. I discussed findings and recommendation of NG tube with patient and her and they agree. Discussed with Guerrero Corona NP who accepted for admission to observation. 04/27/19 23:[address] NG tube but patient didn't tolerate so will just admit for observation with NPO, IV fluids, prn pain and nausea medication. Departure - Departure Time of Disposition: 23:04 Disposition: Refer to Observation Condition: Good Clinical Impression: Small bowel obstruction due to adhesions - Discharge Information Referrals: PCP,Unknown [Primary Care Provider] - Forms: ED Department Discharge - My Orders Last 24 Hours: My Active Orders 04/27/19 20:47 CULTURE URINE [RM] Stat 04/27/19 21:30 Abdomen Pelvis w Cont [CT] Stat 04/27/19 23:00 Nasogastric Orogastric Tube Insertion [OM.PC] Routine 04/27/19 23:05 Patient Status [ADT] Routine 04/27/19 23:06 Patient Status Manage Transfer [TRANSFER] Routine 04/27/19 23:11 Resuscitation Status Routine - Assessment/Plan Last 24 Hours: My Active Orders 04/27/19 20:47 CULTURE URINE [RM] Stat 04/27/19 21:30 Abdomen Pelvis w Cont [CT] Stat 04/27/19 23:00 Nasogastric Orogastric Tube Insertion [OM.PC] Routine 04/27/19 23:05 Patient Status [ADT] Routine 04/27/19 23:06 Patient Status Manage Transfer [TRANSFER] Routine 04/27/19 23:11 Resuscitation Status Routine
[2019-04-27] MEDS: Iopamidol 612 MG/ML 100 ML Bottle IVPUSH ONE (22:08)
[2019-04-27] MEDS: Sodium Chloride 0.9% 50 ML IV ONE (22:09)
[2019-04-27] MEDS ORDERED: Ondansetron 4 MG/2 ML SDV IVPUSH PRN ×2 (23:44→23:50)
[2019-04-27] MEDS ORDERED: Morphine 2 MG/ML Syringe IVPUSH PRN (23:44)
[2019-04-28] MEDS ORDERED: Acetaminophen 650 MG Supp RECTAL PRN (00:01)
[2019-04-28] MEDS: Sodium Chloride 0.9% 1,000 ML IV SCH (00:39)
[2019-04-28] MEDS: Ketorolac 30 MG/ML SDV IVPUSH PRN (00:42)
[2019-04-28] MEDS ORDERED: Sodium Chloride 0.9% 100 ML IV SCH (06:00)
--- NOTE | 2019-04-28 07:39 | CT ---
[id number] CT/CT Abdomen Pelvis W IV EXAM: CT Abdomen Pelvis W IV CLINICAL DATA: ABDOMINAL PAIN. ABDOMINAL DISTENTION. FEVER. COMPARISON: CORRELATION IS MADE WITH THE EXAM OF DECEMBER 26, 2018. FINDINGS: There is a small bowel obstruction. The uterus and ovaries have been removed. The gallbladder has been removed. There is a horseshoe kidney. The appendix is normal. There is no free air or free fluid. There is no pneumatosis intestinalis. The liver and spleen, aorta, adrenals, and pancreas show no acute abnormalities. The mesenteric venous vessels are patent. Streak artifact in the pelvis results from bilateral hip prostheses. IMPRESSION: SMALL BOWEL OBSTRUCTION. REPORT PROVIDED AT TIME OF EXAM. Chucho Sexton MD 04/28/19 0738 Thank you for allowing us to participate in the care of your patient.
--- NOTE | 2019-04-28 09:01 | PCM.HP ---
H&P History of Present Illness - General Date of Service: 04/28/19 Admit Problem/Dx: Admission Diagnosis/Problem Admission Diagnosis/Problem Small bowel obstruction due to adhesions Source of Information: Patient, Old Records, Provider, RN History Limitations: Reports: No Limitations Lower Abdomen Pain Score (Numeric/FACES): 4 - Related Data Allergies/Adverse Reactions: Allergies Allergy/AdvReac Type Severity Reaction Status Date / Time adhesive tape Allergy SKIN Verified 04/27/19 20:55 BREAKDOWN doxycycline Allergy Other Verified 04/27/19 20:55 gabapentin Allergy Cannot Verified 04/27/19 20:55 Remember Penicillins Allergy Other Verified 04/27/19 20:55 pravastatin sodium Allergy Other Verified 04/27/19 20:55 [From Pravachol] Home Medications: Home Meds Metoclopramide HCl [Reglan] 5 mg PO Q12HR #6 tablet 04/28/19 [Rx] Past Medical History HEENT History: Reports: Cataract, Hard of Hearing, Impaired Vision Cardiovascular History: Reports: Afib, Blood Clots/VTE/DVT, High Cholesterol, Hypertension Respiratory History: Reports: Asthma Gastrointestinal History: Reports: Diverticulosis Genitourinary History: Reports: UTI, Recurrent TREATMENT MANAGER History: Reports: None Musculoskeletal History: Reports: Arthritis, Fracture, Fibromyalgia Neurological History: Reports: None, Headaches, Chronic Psychiatric History: Reports: Dementia Endocrine/Metabolic History: Reports: Hypothyroidism Other Endocrine/Metabolic History: Adreanl adenoma Hematologic History: Reports: Anemia Immunologic History: Reports: None Oncologic (Cancer) History: Reports: Basal Cell Carcinoma Dermatologic History: Reports: Other (See Below) Other Dermatologic History: basal cell cancer - Infectious Disease History Infectious Disease History: Reports: Chicken Pox, Measles, Pertussis (Whooping Cough) Other Infectious Disease History: whooping cough - Past Surgical History Head Surgeries/Procedures: Reports: None HEENT Surgical History: Reports: Cataract Surgery Female Surgical History: Reports: Hysterectomy Musculoskeletal Surgical History: Reports: Hip Replacement, Knee Replacement Social & Family History - Family History Family Medical History: Noncontributory Cardiac: Reports: Afib - Tobacco Use Smoking Status *Q: Never Smoker - Caffeine Use Caffeine Use: Reports: Coffee - Recreational Drug Use Recreational Drug Use: No - Living Situation & Occupation Living situation: Reports: Occupation: Retired H&P Review of Systems - Review of Systems: Review Of Systems: See Below General: Reports: No Symptoms HEENT: Reports: No Symptoms Pulmonary: Reports: No Symptoms Cardiovascular: Reports: No Symptoms Gastrointestinal: Denies: Abdominal Pain, Black Stool, Constipation, Diarrhea, Difficulty Swallowing, Distension, Hematochezia, Melena, Nausea, Vomiting Genitourinary: Reports: No Symptoms Musculoskeletal: Reports: No Symptoms Skin: Reports: No Symptoms Psychiatric: Reports: No Symptoms Neurological: Reports: No Symptoms Hematologic/Lymphatic: Reports: No Symptoms Immunologic: Reports: No Symptoms Exam - Exam Exam: See Below - Vital Signs Vital Signs: Last Vital Signs Temp 98.7 F 04/28/19 06:46 Pulse 70 04/28/19 06:46 Resp 20 04/28/19 06:46 BP 115/67 04/28/19 06:46 Pulse Ox 91 L 04/28/19 06:46 Weight: 167 lb 11.2 oz - Exam Quality Assessment: No: Supplemental Oxygen General: Alert, Oriented, Cooperative. No: Mild Distress HEENT: PERRLA, Hearing Intact, Mucosa Moist & [place], Nares Patent, Normal Nasal Septum, Posterior Pharynx Clear, Conjunctiva Clear, EOMI, EACs Clear, TMs Clear Neck: Supple, Trachea Midline, 2 Lungs: Clear to Auscultation, Normal Respiratory Effort Cardiovascular: Regular Rate, Regular Rhythm GI/Abdominal Exam: Normal Bowel Sounds, Soft, Non-Tender. No: No Mass, Distended, Rigid, Rebound, Tender, Abnormal Bowel Sounds (Female) Exam: Deferred Back Exam: No: CVA Tenderness (L), CVA Tenderness (R) Peripheral Pulses: 2+: Radial (L), Radial (R) Skin: Warm, Dry, Intact Neurological: Cranial Nerves Intact, Reflexes Equal Bilateral Neuro Extensive - Mental Status: Alert, Oriented x3 Neuro Extensive - Motor, Sensory, Reflexes: CN II-XII Intact, Normal Gait, Normal Reflexes Psychiatric: Alert, Normal Affect - Patient Data Lab Results Last 24 hrs: Laboratory Results - last 24 hr 04/27/19 04/27/19 04/27/19 Range/Units 20:31 20:31 20:31 WBC 7.39 (5.00-10.00) 10^3/uL RBC 5.14 (3.80-5.50) 10^6/uL Hgb 15.9 (12.0-16.0) g/dL Hct 45.8 (37.0-47.0) % MCV 89.1 (82.0-92.0) fL MCH 30.9 (27.0-31.0) pg MCHC 34.7 (32.0-36.0) g/dL RDW 12.7 (11.5-14.5) % Plt Count 245 (150-400) 10^3/uL MPV 9.2 (7.4-10.4) fL Immature Gran % (Auto) 0.1 (0.0-5.0) % Neut % (Auto) 57.7 (50.0-70.0) % Lymph % (Auto) 29.6 (20.0-40.0) % [place] % (Auto) 10.6 H (2.0-8.0) % Eos % (Auto) 1.6 (1.0-3.0) % Baso % (Auto) 0.4 (0.0-1.0) % Immature Gran # (Auto) 0.01 (0.00-0.50) 10^3/uL Neut # (Auto) 4.26 (2.50-7.00) 10^3/uL Lymph # (Auto) 2.19 (1.00-4.00) 10^3/uL Trinity # (Auto) 0.78 (0.10-0.80) 10^3/uL Eos # (Auto) 0.12 (0.10-0.30) 10^3/uL Baso # (Auto) 0.03 (0.00-0.10) 10^3/uL Sodium 142 (136-145) mmol/L Potassium 3.9 (3.3-5.3) mmol/L Chloride 107 (98-115) mmol/L Carbon Dioxide 21.5 (21.0-32.0) mmol/L Anion Gap 17.4 H (5-15) mmol/L BUN 16 (6-25) mg/dL Creatinine 0.85 (0.51-1.17) mg/dL Est Cr Clr Drug Dosing 47.86 mL/min Estimated GFR (MDRD) > 60 mL/min Glucose 101 H (75 - 99) mg/dL Calcium 9.9 (8.7-10.3) mg/dL Total Bilirubin 0.5 (0.2-1.0) mg/dL AST 35 (15-37) U/L ALT 41 (12-78) U/L Alkaline Phosphatase 49 (46-116) IU/L C-Reactive Protein 0.5 (0.0-0.9) mg/dL Total Protein 7.8 (6.4-8.2) g/dL Albumin 4.08 (3.00-4.80) g/dL Specimen Type Urine Color (YELLOW) Urine Appearance (CLEAR) Urine pH (5.0-9.0) Ur Specific [place] (1.005-1.030) Urine Protein (NEGATIVE) mg/dL Urine Glucose (UA) (NEGATIVE) mg/dL Urine Ketones (NEGATIVE) mg/dL Urine Occult Blood (NEGATIVE) Urine Nitrite (NEGATIVE) Urine Bilirubin (NEGATIVE) Urine Urobilinogen (0.2-1.0) E.U./dL Ur Leukocyte Esterase (NEGATIVE) Urine RBC (0-5) /HPF Urine WBC (0-5) /HPF Ur Epithelial Cells /LPF Urine Bacteria (NONE TO FEW) /HPF 04/27/19 Range/Units 20:47 WBC (5.00-10.00) 10^3/uL RBC (3.80-5.50) 10^6/uL Hgb (12.0-16.0) g/dL Hct (37.0-47.0) % MCV (82.0-92.0) fL MCH (27.0-31.0) pg MCHC (32.0-36.0) g/dL RDW (11.5-14.5) % Plt Count (150-400) 10^3/uL MPV (7.4-10.4) fL Immature Gran % (Auto) (0.0-5.0) % Neut % (Auto) (50.0-70.0) % Lymph % (Auto) (20.0-40.0) % Trinity % (Auto) (2.0-8.0) % Eos % (Auto) (1.0-3.0) % Baso % (Auto) (0.0-1.0) % Immature Gran # (Auto) (0.00-0.50) 10^3/uL Neut # (Auto) (2.50-7.00) 10^3/uL Lymph # (Auto) (1.00-4.00) 10^3/uL Trinity # (Auto) (0.10-0.80) 10^3/uL Eos # (Auto) (0.10-0.30) 10^3/uL Baso # (Auto) (0.00-0.10) 10^3/uL Sodium (136-145) mmol/L Potassium (3.3-5.3) mmol/L Chloride (98-115) mmol/L Carbon Dioxide (21.0-32.0) mmol/L Anion Gap (5-15) mmol/L BUN (6-25) mg/dL Creatinine (0.51-1.17) mg/dL Est Cr Clr Drug Dosing mL/min Estimated GFR (MDRD) mL/min Glucose (75 - 99) mg/dL Calcium (8.7-10.3) mg/dL Total Bilirubin (0.2-1.0) mg/dL AST (15-37) U/L ALT (12-78) U/L Alkaline Phosphatase (46-116) IU/L C-Reactive Protein (0.0-0.9) mg/dL Total Protein (6.4-8.2) g/dL Albumin (3.00-4.80) g/dL Specimen Type . Urine Color Light yellow (YELLOW) Urine Appearance Clear (CLEAR) Urine pH 7.0 (5.0-9.0) Ur Specific [place] 1.010 (1.005-1.030) Urine Protein Negative (NEGATIVE) mg/dL Urine Glucose (UA) Negative (NEGATIVE) mg/dL Urine Ketones Negative (NEGATIVE) mg/dL Urine Occult Blood Negative (NEGATIVE) Urine Nitrite Negative (NEGATIVE) Urine Bilirubin Negative (NEGATIVE) Urine Urobilinogen 0.2 (0.2-1.0) E.U./dL Ur Leukocyte Esterase Trace H (NEGATIVE) Urine RBC 0-5 (0-5) /HPF Urine WBC 5-10 H (0-5) /HPF Ur Epithelial Cells Moderate H /LPF Urine Bacteria Not seen (NONE TO FEW) /HPF Result Diagrams: 04/27/19 20:31 04/27/19 20:31 Problem List Initiated/Reviewed/Updated: Yes Orders Last 24hrs: Active Orders 24 hr Category Date Time Status Bedrest Bathroom Privileges [RC] ASDIRECTED Care 04/27/19 23:44 Active Up ad Omayra [RC] ASDIRECTED Care 04/27/19 23:44 Active Vital Signs [RC] 0300,0700,1100,1500,1900,2300 Care 04/27/19 23:44 Active Clear Liquid Diet [DIET] Diet 04/28/19 Breakfast Ordered CULTURE URINE [RM] Stat Lab 04/27/19 20:47 Received Acetaminophen [Tylenol] Med 04/28/19 00:01 Active 650 mg RECTAL Q4H PRN Ketorolac [Toradol] Med 04/28/19 00:00 Active 15 mg IVPUSH Q8H PRN Metoclopramide [Reglan] Med 04/28/19 08:39 Once 5 mg IVPUSH ONETIME ONE Morphine Med 04/27/19 23:44 Active 2 mg IVPUSH Q2H PRN Ondansetron [Zofran] Med 04/27/19 23:50 Active 4 mg IVPUSH Q6HR PRN Sodium Chloride 0.9% [Normal Saline] 1,000 ml Med 04/28/19 00:15 Active IV ASDIRECTED Resuscitation Status Routine Resus Stat 04/27/19 23:11 Ordered Medication Orders Acetaminophen (Tylenol) 650 mg RECTAL Q4H PRN PRN Reason: Pain Sodium Chloride (Normal Saline) 1,000 mls @ 100 mls/hr IV ASDIRECTED [facility] Last Admin: 04/28/19 00:39 Dose: 100 mls/hr Ketorolac Tromethamine (Toradol) 15 mg IVPUSH Q8H PRN PRN Reason: Pain Stop: 05/03/19 00:00 Last Admin: 04/28/19 00:42 Dose: 15 mg Metoclopramide HCl (Reglan) 5 mg IVPUSH ONETIME ONE Stop: 04/28/19 08:40 Morphine Sulfate (Morphine) 2 mg IVPUSH Q2H PRN PRN Reason: Abdominal Pain Ondansetron HCl (Zofran) 4 mg IVPUSH Q6HR PRN PRN Reason: Nausea/Vomiting Assessment/Plan Comment:: Please use this H&P as a combined discharge summary Nicole Figueroa is a 78-year-old female was admitted last night through the ED due to a possible mechanical low-grade small bowel obstruction. She came through the ED complaining of abdominal pain, dysuria and polyuria that day. She also stated mild fever however undocumented. She had no diarrhea no vomiting and does have a history of diverticulosis with diverticulitis in the past. Patient does have some dementia that seems to have progressed over the past year in which she did have a hard time describing her symptoms. Her reported 2 day diet of beans and vegetables. Diagnostics CT abdomen pelvis with IV contrast demonstrated low-grade mechanical SBO likely due to adhesions, no abscess no free fluid or free air. Update since last night Patient feels good, multiple bowel movements throughout the night, do not require gastric decompression, no fever no nausea, patient very hungry this morning, normal bowel tones, very slight abdominal distention, which improved with bowel rest last night. Primary hospital problems/final diagnosis Small bowel obstruction versus ileus, resolving. Disposition/MDM/Overall plan. Patient in observation status, strong desire to go home today. No concerning signs and symptoms of complications/strangulation/and/or ischemia. Electrolytes normal, vital signs good, afebrile. With her having bowel movements likely has resolved. Possibility she could go home later this afternoon however advance diet to clear liquids, Ambulate on floor. Reglan 1 and we'll see how she feels this afternoon despite patient's strong desire to be discharged immediately. Will consult with spouse regarding disposition and plan. Hospital course Hospital course went well without any complications. Nasogastric tube was unable to be passed however patient had no vomiting, multiple stools throughout the night on discharge, good bowel tones upon rounds and throughout the next day. She tolerated a slowly advancing diet. Much less abdominal distention. No pain. Vital signs were stable no signs of excuse mid bowel, patient demanded to be discharged after walking on the floor multiple times. She will have to have close follow-up. Careful instructions were given to the patient upon discharge to monitor for signs and symptoms of worsening mechanical bowel obstruction such as vomiting, pain, abdominal distention lack of bowel movements. Reglan 1 was given. She was discharged later in the afternoon with limited doses of oral Reglan.
[2019-04-28] MEDS: Metoclopramide 10 MG/2 ML SDV IVPUSH ONE (10:32)
[2019-04-28 15:54] VITALS: BP 110/65
== END 2019-04-28 17:46 | disposition home or self-care (01) ==
LOC: KA.ED 20:20 → KA.MS 23:10
PROVIDERS: ADMIT Nurse Practitioner Family; ATTEND Nurse Practitioner Family
DX: K56.50 Intestinal adhesions [bands], unspecified as to partial versus complete obstruction (principal); I10 Essential (primary) hypertension; I48.91 Unspecified atrial fibrillation; Z98.890 Other specified postprocedural states; Z88.1 Allergy status to other antibiotic agents; Z88.0 Allergy status to penicillin; Z88.8 Allergy status to other drugs, medicaments and biological substances; Z91.048 Other nonmedicinal substance allergy status; Z87.19 Personal history of other diseases of the digestive system; Z86.2 Personal history of diseases of the blood and blood-forming organs and certain disorders involving the immune mechanism
CPT/HCPCS: 36415; 74177; 80053; 81001; 85025; 86140; 87086; 96360; 96361; 96374; 96375; 99285-25; G0378; J1885; J2765; J7030; J7050; Q9967

== ENCOUNTER 2019-07-25 16:05 | Emergency (ER) | payer MEDICARE ==
--- NOTE | 2019-07-25 16:44 | EDM.PDOC ---
ED HPI GENERAL MEDICAL PROBLEM - General Chief Complaint: General Stated Complaint: THIGH, GROIN PAIN Time Seen by Provider: 07/25/19 16:35 Source of Information: Reports: Patient, Family () History Limitations: Reports: Altered Mental Status (Progressing dementia) - History of Present Illness INITIAL COMMENTS - FREE TEXT/NARRATIVE: Patient is a 79-year-old female who presents to the emergency department this afternoon with a complaint of bilateral lower extremity pain. Patient presents with her who is blind. However, he is a better historian. Patient states that she noticed these things on her legs and has intermittent discomfort. Patient also states that she believes her legs are swollen. said that when she took off her stockings earlier. He noticed a ring indent around the proximal portion. However, that has resolved prior to presenting to the ER. Patient has scattered thoughts, poor description of discomfort and events, and is unsure of duration. At this time. Patient denies chest pain, shortness of breath, headache, injury, dizziness, blurry vision, fever, nausea, vomiting, diarrhea, or any trauma. Onset: Unknown/Unsure Location: Reports: Lower Extremity, Left, Lower Extremity, Right Quality: Reports: Ache Severity: Mild Improves with: Reports: None Worsens with: Reports: None Associated Symptoms: Reports: No Other Symptoms. Denies: Chest Pain, Fever/ Chills, Shortness of Breath - Related Data Allergies Allergy/AdvReac Type Severity Reaction Status Date / Time adhesive tape Allergy SKIN Verified 04/27/19 20:55 BREAKDOWN doxycycline Allergy Other Verified 04/27/19 20:55 gabapentin Allergy Cannot Verified 04/27/19 20:55 Remember Penicillins Allergy Other Verified 04/27/19 20:55 pravastatin sodium Allergy Other Verified 04/27/19 20:55 [From Pravachol] Home Meds: Home Meds Metoclopramide HCl [Reglan] 5 mg PO Q12HR #6 tablet 04/28/19 [Rx] Past Medical History HEENT History: Reports: Cataract, Hard of Hearing, Impaired Vision Cardiovascular History: Reports: Afib, Blood Clots/VTE/DVT, High Cholesterol, Hypertension Respiratory History: Reports: Asthma Gastrointestinal History: Reports: Diverticulosis Genitourinary History: Reports: UTI, 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: Reports: None Musculoskeletal History: Reports: Arthritis, Fracture, Fibromyalgia Neurological History: Reports: None, Headaches, Chronic Psychiatric History: Reports: Dementia Endocrine/Metabolic History: Reports: Hypothyroidism Other Endocrine/Metabolic History: Adreanl adenoma Hematologic History: Reports: Anemia Immunologic History: Reports: None Oncologic (Cancer) History: Reports: Basal Cell Carcinoma Dermatologic History: Reports: Other (See Below) Other Dermatologic History: basal cell cancer - Infectious Disease History Infectious Disease History: Reports: Chicken Pox, Measles, Pertussis (Whooping Cough) Other Infectious Disease History: whooping cough - Past Surgical History Head Surgeries/Procedures: Reports: None HEENT Surgical History: Reports: Cataract Surgery Female Surgical History: Reports: Hysterectomy Musculoskeletal Surgical History: Reports: Hip Replacement, Knee Replacement Social & Family History - Family History Family Medical History: Noncontributory Cardiac: Reports: Afib - Caffeine Use Caffeine Use: Reports: Coffee - Living Situation & Occupation Living situation: Reports: Occupation: Retired ED ROS GENERAL - Review of Systems Review Of Systems: ROS reveals no pertinent complaints other than HPI. Constitutional: Reports: No Symptoms HEENT: Reports: No Symptoms Respiratory: Reports: No Symptoms Cardiovascular: Reports: No Symptoms Endocrine: Reports: No Symptoms GI/Abdominal: Reports: No Symptoms : Reports: No Symptoms Musculoskeletal: Reports: Leg Pain (Bilaterally) Skin: Reports: No Symptoms, Other (Lower extremity edema) Neurological: Reports: Confusion, Pre-Existing Deficit (Dementia) Psychiatric: Reports: No Symptoms Hematologic/Lymphatic: Reports: No Symptoms Immunologic: Reports: No Symptoms ED EXAM, GENERAL - Physical Exam Exam: See Below Exam Limited By: No Limitations General Appearance: Alert, WD/WN, No Apparent Distress Eye Exam: Bilateral Eye: Normal Inspection Throat/Mouth: Normal Inspection, Normal Oropharynx, No Airway Compromise Head: Atraumatic, Normocephalic Respiratory/Chest: No Respiratory Distress, Lungs Clear, Normal Breath Sounds, No Accessory Muscle Use, Chest Non-Tender Cardiovascular: Regular Rate, Rhythm Peripheral Pulses: 2+: Femoral (L), Femoral (R), Popliteal (L), Popliteal (R), Posterior Tibial (L), Posterior Tibial (R), Dorsalis Pedis (L), Dorsalis Pedis ( R) GI/Abdominal: Normal Bowel Sounds, Soft, Non-Tender Back Exam: Normal Inspection. No: CVA Tenderness (L), CVA Tenderness (R) Extremities: Normal Inspection, No Pedal Edema, Other (Scattered varicosities bilaterally.) Psychiatric: Other (Poor historian with scattered thoughts and descriptions.) Skin Exam: Warm, Dry, Intact, Normal Color, No Rash, Other (Patient also points to bilateral knee surgical scars and is unsure what those are. She also thinks that her patellas are deformed.). No: Cyanosis, Ecchymosis, Erythema, Increased Warmth, Mottled, Pallor, Petechiae, Rash, Zoster-Like Rash Lymphatic: No Adenopathy Course - Re-Assessments/Exams Free Text/Narrative Re-Assessment/Exam: 07/25/19 16:44 Patient afebrile, vital signs stable, at bedside. Explained in length what the varicose veins were, intermittent edema of lower extremities, and concern for follow-up at [facility]. Departure - Departure Time of Disposition: 16:46 Disposition: Home, Self-Care 01 Condition: Good Clinical Impression: Bilateral lower extremity edema Varicose veins of both lower extremities Qualifiers: Varicose vein complication: pain Qualified Code(s): I83.813 - Varicose veins of bilateral lower extremities with pain Dementia Qualifiers: Dementia type: unspecified type Dementia behavioral disturbance: without behavioral disturbance Qualified Code(s): F03.90 - Unspecified dementia without behavioral disturbance - Discharge Information Instructions: Varicose Veins, How to Use Compression Stockings, Dementia, Easy- to-Read Referrals: Kristian Recinos MD [Primary Care Provider] - Forms: ED Department Discharge Additional Instructions: Follow-up at [facility] in next 1-2 days. Return to emergency department sooner if symptoms continue or worsen. - Assessment/Plan Assessment:: Dementia, varicose veins Plan: Follow-up with PCP
[2019-07-25 18:49] VITALS: BP 142/78; PULSE 63
== END 2019-07-25 16:53 | disposition home or self-care (01) ==
LOC: KA.ED 16:05
DX: I83.813 Varicose veins of bilateral lower extremities with pain (principal); I83.893 Varicose veins of bilateral lower extremities with other complications; F03.90 Unspecified dementia, unspecified severity, without behavioral disturbance, psychotic disturbance, mood disturbance, and anxiety; I10 Essential (primary) hypertension; I48.91 Unspecified atrial fibrillation; Z86.2 Personal history of diseases of the blood and blood-forming organs and certain disorders involving the immune mechanism; Z88.0 Allergy status to penicillin; Z88.8 Allergy status to other drugs, medicaments and biological substances
CPT/HCPCS: 99283

== ENCOUNTER 2019-08-06 16:55 | Observation (INO) | payer MEDICARE ==
[2019-08-06] MEDS ORDERED: Sodium Chloride 0.9% 10 ML Syringe FLUSH PRN (17:14)
[2019-08-06 17:20] VITALS: PULSE 80
[2019-08-06] MEDS ORDERED: Baclofen 10 MG Tab PO PRN (18:17)
[2019-08-06] MEDS ORDERED: Ibuprofen 200 MG Tab PO PRN (18:17)
[2019-08-06] MEDS ORDERED: Nitroglycerin 0.4 MG Tab.SL SL PRN (18:17)
[2019-08-06] MEDS ORDERED: Acetaminophen 500 MG Tab PO PRN (18:17)
[2019-08-06] MEDS ORDERED: Iopamidol 755 Mg/ML 100 ML Bottle IV ONE (18:19)
[2019-08-06] MEDS ORDERED: Sodium Chloride 0.9% 50 ML IV SCH (18:30)
[2019-08-06] MEDS ORDERED: LORazepam 2 MG/ML SDV IVPUSH PRN (18:31)
[2019-08-06] MEDS ORDERED: Haloperidol Lactate 5 MG/ML SDV IM PRN ×2 (18:32→18:38)
[2019-08-06] MEDS ORDERED: Haloperidol Lactate 5 MG/ML SDV ONE (18:37)
--- NOTE | 2019-08-06 19:43 | CT ---
[id number] CT/CT Abdomen Pelvis W IV EXAM: CT Abdomen Pelvis W IV CLINICAL DATA: ABDOMINAL PAIN COMPARISON STUDY: Multiple priors with most recent being April 27, 2019. FINDINGS: Dependent atelectasis at the lung bases bilaterally. Aortic valvular calcifications. Atherosclerotic calcifications of aorta and its branches. Small hiatal hernia. Generalized hypodensity liver consistent with hepatic steatosis. No focal hepatic lesions are identified. The spleen, pancreas, adrenal glands are unremarkable. The gallbladder surgically absent. There is a horseshoe kidney. The kidneys are otherwise unremarkable. No renal calculi are identified. No hydronephrosis or hydroureter. No suspicious renal lesions are identified. No bowel obstruction or inflammation. The appendix is visualized and appears normal. Colonic diverticulosis without evidence of acute diverticulitis. No lymphadenopathy, free fluid, or pneumoperitoneum. Evaluation of the pelvis is limited secondary to streak artifact from bilateral hip arthroplasties. Scattered changes of spondylosis the spine. No fracture or osseous lesion. IMPRESSION: No acute CT findings in the abdomen or pelvis to explain the patient's symptoms.. Onesimo Taveras DO 08/06/19 1942 Thank you for allowing us to participate in the care of your patient.
[2019-08-06] MEDS ORDERED: RISPERIDONE 0.5 MG PO SCH (21:00)
[2019-08-07 04:50] VITALS: BP 108/65
[2019-08-07] MEDS: Metoclopramide 10 MG Tab PO SCH ×2 (05:06→10:03)
[2019-08-07] MEDS ORDERED: Polyethylene Glycol 3350 Powder 17 GM Packet PO SCH (09:00)
[2019-08-07] MEDS ORDERED: Lutein/Minerals/Vitamins A, C & E Tab PO SCH (09:00)
[2019-08-07] MEDS ORDERED: Calcium Citrate/Vitamin D3 315 MG-250 Unit Tab PO SCH (09:00)
[2019-08-07] MEDS ORDERED: Aspirin 325 MG Tab.EC PO SCH (09:00)
--- NOTE | 2019-08-09 10:25 | DISCH ---
ADMITTING DIAGNOSIS: Lower abdominal pain and acute exacerbation of dementia. FINAL DIAGNOSES: Lower abdominal pain and exacerbation of acute dementia. BRIEF HISTORY AND ESSENTIAL PHYSICAL FINDINGS: The patient was seen in the clinic having this severe pain to her lower abdomen, kind of by her hips on both sides. The patient was tender on palpation. Lab work that was obtained in the clinic; CBC, CMP, sedimentation rate, urinalysis were all unremarkable. The patient was sent to the hospital for observation status and a CT of the abdomen and pelvis with contrast was obtained which was unremarkable per Radiology. The patient also did have an x-ray of her right hip that was unremarkable. Today, the patient's pain is well controlled. The patient's family members are all here. They have agreed to discharge the patient and do swing bed status until the patient can be admitted to the [facility]. They are going to be admitted to swing bed just for pain control and also to help with just daily activities because the patient's is blind. The patient's dementia has been getting worse. She was recently started on some Risperdal for some hallucinations and worsening symptoms. Family members state that the patient had gotten worse with her dementia being started on the Risperdal, so we are going to hold that at this time. The patient is in agreement with plan to swing bed, so is all her family members. SIGNIFICANT LABS, X-RAYS, AND CONSULTATION FINDINGS: The patient's CT of the abdomen and pelvis that was performed on admission just states that the patient has some atelectasis at her lung bases bilaterally. She has aortic valvular calcifications. She has a small hiatal hernia. She has some hypodensity in her liver consistent with fatty liver. No focal lesions. Her gallbladder is surgically absent. 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 No renal calculi identified. No hydronephrosis. She has no bowel structure inflammation. The appendix is visualized and appears normal. She has some colonic diverticulosis without evidence of acute diverticulitis. No lymphadenopathy, free fluid, or pneumoperitoneum. She has some scattered changes of spondylosis to the spine. The impression per Radiology reads, no acute CT findings in the abdomen and pelvis to explain the patient's symptoms. This is by Dr. Taveras. The patient also did have a right hip x-ray ordered. I do not see any report on this at this time. Lab work that was obtained in the clinic; CBC, CMP, sedimentation rate, and urinalysis were all unremarkable. COURSE IN HOSPITAL WITH COMPLICATIONS: The patient is very anxious and upset. When admitted for CAT scan, she was given 0.5 mg Ativan. She did calm down. Her pain has been controlled since that time. She did sleep very well after receiving the Ativan. CONDITION TREATMENT AND FINAL DISPOSITION ON DISCHARGE AND PROGNOSIS: Condition is stable. Final disposition: She will be swung to swing bed status. IMPRESSION: 1. Bilateral lower abdominal pain in the pelvic region. Plan, we are going to have the patient some tramadol 50 mg every 6 hours needed for pain. She will also have some ibuprofen as needed for pain. Also, I am going to have her have some Zanaflex 2 mg that she can have as needed for I believe maybe this is some muscle spasm, because it kind of comes and goes. CT scan was negative. 2. Exacerbation of dementia. Plan, we are going to hold the patient's Risperdal at this time. She can have some Ativan 0.5 mg p.o. every 4 hours as needed. I may consider starting low-dose Aricept tomorrow 5 mg. We will see how she is doing. /[id number]/MODL
== END 2019-08-07 10:56 | disposition swing bed (61) ==
LOC: KA.MS 17:00 → UNDOADMOB 17:00 → KA.MS 17:14 → UNDODISOB 08-07 09:51
PROVIDERS: ADMIT Nurse Practitioner Family; ATTEND Nurse Practitioner Family
DX: R10.30 Lower abdominal pain, unspecified (principal); F03.90 Unspecified dementia, unspecified severity, without behavioral disturbance, psychotic disturbance, mood disturbance, and anxiety; R50.9 Fever, unspecified; J98.11 Atelectasis; K44.9 Diaphragmatic hernia without obstruction or gangrene; K57.30 Diverticulosis of large intestine without perforation or abscess without bleeding; M47.819 Spondylosis without myelopathy or radiculopathy, site unspecified; M19.90 Unspecified osteoarthritis, unspecified site; E78.00 Pure hypercholesterolemia, unspecified; E03.9 Hypothyroidism, unspecified; Z90.49 Acquired absence of other specified parts of digestive tract; Z79.899 Other long term (current) drug therapy; Z79.82 Long term (current) use of aspirin; Z88.0 Allergy status to penicillin; Z88.1 Allergy status to other antibiotic agents; Z88.8 Allergy status to other drugs, medicaments and biological substances; Z91.048 Other nonmedicinal substance allergy status
CPT/HCPCS: 36415; 74177; 87040; 96374; G0378; G0379; J2060; J7050; Q9967

== ENCOUNTER 2019-08-07 09:42 | Inpatient (IN) | payer MEDICARE ==
[2019-08-07] MEDS ORDERED: LORazepam 0.5 MG Tab PO PRN (10:58)
[2019-08-07] MEDS ORDERED: tiZANidine 4 MG Tab PO PRN (10:58)
[2019-08-07] MEDS ORDERED: traMADol 50 MG Tab PO PRN (11:00)
--- NOTE | 2019-08-07 11:46 | HP ---
HISTORY OF PRESENT ILLNESS: This is a 79-year-old female with history of dementia. She lives at home with her . Her is blind. The patient has been having increased problems with dementia for quite some time. She was recently started on some Risperdal for hallucinations. Family members had stated that her dementia had been getting worse lately. The patient came to clinic on Friday with concerns about lower abdominal pain kind of in her lower pelvic area on both sides. She was very tender with palpation. She was admitted to the hospital for observation status at that time regarding the abdominal pain. CT of the abdomen and pelvis was obtained, which were unremarkable and showed no etiology for the pain. The patient was then decided by the family to be transferred into swing bed status because she had been declining at home until she [place] get into [place]. The patient's pain has been well controlled today. The patient does have a past medical history of dementia and some osteopenia. The patient's medications that she was taking at home, she was just taking some Risperdal 0.5 mg at bedtime. We are going to hold that medication because it seemed to be making her dementia and hallucinations worse. ALLERGIES: The patient's drug allergies are adhesive tape, doxycycline, gabapentin, penicillin, and Pravachol. SOCIAL/PERSONAL HISTORY: The patient does live at home with her . Her is blind. She does not drink any alcohol or smoke cigarettes. REVIEW OF SYSTEMS: CONSTITUTIONAL: No weight loss. No fever. No chills. No night sweats. Appetite is good. No fatigue. EYES: No recent visual changes. ENT: No sinus congestion or hoarseness. CARDIOVASCULAR: No chest pain or palpitations. RESPIRATORY: No cough. No shortness of breath. GI: The patient denies any diarrhea or constipation. She denies any nausea or vomiting, but she has been having this lower abdominal pain on both sides of her pelvic area that comes and goes. She has not had any pain since admission. : No dysuria or hematuria. MUSCULOSKELETAL: No new bone pain or joint swelling. INTEGUMENTARY: No rash or pruritus. NEUROLOGIC/PSYCHIATRIC: No recent headache or focal weakness. No depressive symptoms. ENDOCRINE: No heat or cold intolerances or polydipsia. HEMATOLOGIC/LYMPHATIC: No excessive bruising or lymph node swelling. ALLERGIC/IMMUNOLOGIC: No hives or recurrent infections. PHYSICAL EXAMINATION: GENERAL: The patient is an elderly white female, in no acute distress. VITAL SIGNS: Blood pressure 123/73, pulse was 70, O2 sats were 96% on room air. Temperature is 97.9, it was elevated in the clinic, and on admission, it was 99.4. HEENT: Head is normocephalic. EOMs are intact. Pupils are equal, round, and react to light and accommodation. Bilateral tympanic membranes are intact. Nose is clear. No pharyngeal erythema noted. NECK: Supple. No JVD. Trachea midline. RESPIRATORY: Lung sounds are clear throughout lung dejesus. CARDIAC: Regular rate and rhythm. No murmurs identified. ABDOMEN: Soft, nontender, nondistended. The patient has some pain with palpation to her lower abdomen, but it comes and goes. The patient's attention is diverted away. She does not seem to have the pain as when she is focusing on it. EXTREMITIES: No joint effusions. Full range of motion. NEUROLOGIC: Grossly intact except for dementia and confusion at times. DIAGNOSTIC: CT of the abdomen and pelvis was unremarkable. No etiology for acute pain. Please see report. IMPRESSION/PLAN: 1. Bilateral lower abdominal pain more in the pelvic region. We are going to have the patient just have some ibuprofen 600 mg every 6 hours as needed for pain. If that is not cutting the pain, she may use a heating pad to these areas to help with the pain. Also, she does have some tramadol, although we will try to not use, but 50 mg every 6 hours as needed for pain. Regular diet. 2. Advancing dementia. Plan for her exacerbations and when she gets very anxious, she can have some Ativan 0.5 mg q.4 hours as needed for anxiety. I also am going to start her on low-dose Aricept tomorrow or this evening at bedtime, 5 mg Aricept. The patient also may have some Zanaflex. I am questioning if these are some muscle spasms that she is having and her lower abdominal pain. She has some Zanaflex 2 mg every 6 hours as needed for this abdominal pain along with a heating pad. Overall plan, we are going to keep the patient in swing bed status. She can be self-pay just p.o. medications until Friday or Friday when she can be [place] care. /[id number]/MODL
[2019-08-07] MEDS: Ibuprofen 600 MG Tab PO PRN (13:07)
[2019-08-07] MEDS ORDERED: TIZANIDINE 4 MG PO PRN (16:53)
[2019-08-07] MEDS ORDERED: traMADol 50 MG Tab **OWN MED PO PRN (16:53)
[2019-08-07] MEDS: Donepezil 10 MG Tab PO SCH (22:41)
[2019-08-08] MEDS: LORazepam 0.5 MG Tab **OWN MED PO PRN ×2 (10:46→16:40)
[2019-08-08] MEDS ORDERED: Haloperidol Lactate 5 MG/ML SDV IM ONE (19:06)
[2019-08-08] MEDS: Donepezil 10 MG Tab PO SCH (20:59)
[2019-08-08] MEDS ORDERED: QUEtiapine 25 MG Tab PO SCH (21:00)
[2019-08-08] MEDS ORDERED: Haloperidol Lactate 5 MG/ML SDV IM PRN (21:00)
[2019-08-09] MEDS: QUEtiapine 25 MG Tab PO SCH (15:11)
[2019-08-09] MEDS: Donepezil 10 MG Tab PO SCH (20:46)
[2019-08-09] MEDS: Ibuprofen 600 MG Tab PO PRN (20:46)
[2019-08-10 07:04] VITALS: BP 125/68; PULSE 68
[2019-08-10] MEDS: QUEtiapine 25 MG Tab PO SCH (08:20)
--- NOTE | 2019-08-10 09:53 | PCM.DCSUM1 ---
Discharge Summary - Hospital Course Diagnosis: Stroke: No - Discharge Data Discharge Date: 08/10/19 Discharge Disposition: DC/Tfer to SNF 03 Condition: Fair - Referral to Home Health Primary Care Physician: Guerrero Corona NP - Patient Instructions Diet: Regular Diet as Tolerated Activity: As Tolerated Driving: Do Not Drive Showering/Bathing: May Shower Notify Provider of: Increased Pain - Discharge Plan *PRESCRIPTION DRUG MONITORING PROGRAM REVIEWED*: Not Applicable *COPY OF PRESCRIPTION DRUG MONITORING REPORT IN PATIENT DELORES: Not Applicable Prescriptions/Med Rec: Aspirin 81 mg PO DAILY #30 tab.chew QUEtiapine Fumarate [Quetiapine Fumarate ER] 50 mg PO DAILY #30 tab.er.24h Home Medications: Home Meds Multivitamin W-Minerals/Lutein [A Thru Z Advanced Formula Tab] 1 each PO DAILY 08/06/19 [History] Nitroglycerin [Nitrostat] 0.4 mg SL ASDIRECTED PRN 08/06/19 [History] Acetaminophen [Acetaminophen Extra Strength] 1,000 mg PO Q6H PRN #180 08/10/19 [ Rx] Aspirin 81 mg PO DAILY #30 tab.chew 08/10/19 [Rx] Baclofen 5 mg PO BID PRN #30 08/10/19 [Rx] Calcium Carbonate/Vitamin D3 [Calcium 600 + Vit D 200] 1 each PO DAILY #30 08/10 [Rx] Ibuprofen [Advil] 200 mg PO Q6H PRN #30 08/10/19 [Rx] LORazepam [Ativan] 0.5 mg PO Q8HR PRN #30 tablet 08/10/19 [Rx] Polyethylene Glycol 3350 [MiraLAX] 17 gm PO DAILY #30 08/10/19 [Rx] QUEtiapine Fumarate [Quetiapine Fumarate ER] 50 mg PO DAILY #30 tab.er.24h 08/10 [Rx] Referrals: [facility] [Outside] - Discharge Summary/Plan Comment DC Time >30 min.: Yes Discharge Summary/Plan Comment: final dx; Dementia with some psychosis component. Malnutrition Brief history I had admitted this patient due to significant abdominal pain. Her who is blind brought the patient to the [facility] due to pain in her right hitting her abdomen. She is also been more confused than her normal baseline. She has had more difficulty concentrating and confusion in in the past has refused neuropsychological evaluation. Her exam in the [facility] do not point to any specific etiology however subsequent CT scan at the hospital did not show any organic etiology that warranted her pain. Hospital course Her hospital course while in swing bed was quite uneventful, she did improve and her mentation status, risperidone was held, I discontinued her tramadol and her Zanaflex and changed her aspirin to low-dose. Is seeing that her Reina quelled newly added and slowly titrated up did improve her mentation status. She was very near her mentation status at baseline--however not optimal. The plan was to discharge to to a long-term care center medication changes/adjustments upon discharge Discontinue tramadol Discontinued mertazapine continue Zanaflex Changed aspirin from 325-81 mg Seroquel 50 mg by mouth daily, newly added upon admission Changed Ativan every 4 to every 8 hours Disposition patient was transferred to long-term [facility]. - General Info Functional Status: Reports: Pain Controlled - Review of Systems General: Reports: No Symptoms HEENT: Reports: No Symptoms Pulmonary: Reports: No Symptoms Cardiovascular: Reports: No Symptoms Gastrointestinal: Reports: No Symptoms Genitourinary: Reports: No Symptoms Musculoskeletal: Reports: No Symptoms Skin: Reports: No Symptoms Neurological: Reports: Confusion Psychiatric: Denies: Anxiety - Patient Data Vitals - Most Recent: Last Vital Signs Temp 97.2 F 08/10/19 07:00 Pulse 68 08/10/19 07:00 Resp 16 08/10/19 07:00 BP 125/68 08/10/19 07:00 Pulse Ox 95 08/10/19 07:00 Weight - Most Recent: 155 lb 1.6 oz I&O - Last 24 hours: Intake & Output 08/09/19 08/10/19 08/10/19 22:59 06:59 14:59 Intake Total 400 100 Balance 400 100 Med Orders - Current: Current Medications Donepezil HCl (Aricept) 5 mg PO BEDTIME SORAYA Last Admin: 08/09/19 20:46 Dose: 5 mg Haloperidol Lactate (Haldol) 5 mg IM Q2H PRN PRN Reason: Agitation Ibuprofen (Motrin) 600 mg PO Q6H PRN PRN Reason: Abdominal Pain Last Admin: 08/09/19 20:46 Dose: 600 mg Lorazepam (Ativan) 0.5 mg PO Q4H PRN PRN Reason: Anxiety Last Admin: 08/08/19 16:40 Dose: 0.5 mg Quetiapine Fumarate (Seroquel) 50 mg PO DAILY [facility] Last Admin: 08/10/19 08:20 Dose: 50 mg Tizanidine HCl (Zanaflex) 2 mg PO Q6H PRN PRN Reason: Muscle Spasm Tramadol HCl (Ultram) 50 mg PO Q6H PRN PRN Reason: Abdominal Pain Last Admin: 08/08/19 16:41 Dose: 25 mg Discontinued Medications Haloperidol Lactate (Haldol) 5 mg IM ONETIME ONE Stop: 08/08/19 19:07 Last Admin: 08/08/19 19:19 Dose: 5 mg Lorazepam (Ativan) 0.5 mg PO Q4H PRN PRN Reason: Anxiety Quetiapine Fumarate (Seroquel) 25 mg PO BEDTIME [facility] Last Admin: 08/08/19 20:07 Dose: 25 mg Tizanidine HCl (Zanaflex) 2 mg PO Q6H PRN PRN Reason: Muscle Spasm Tramadol HCl (Ultram) 50 mg PO Q6H PRN PRN Reason: Abdominal Pain - Exam Quality Assessment: Denies: Supplemental Oxygen General: Reports: Alert, Oriented, No Acute Distress Lungs: Reports: Clear to Auscultation, Normal Respiratory Effort Cardiovascular: Reports: Regular Rate, Regular Rhythm GI/Abdominal Exam: Normal Bowel Sounds, Soft Back Exam: Denies: CVA Tenderness (L), CVA Tenderness (R) Extremities: No Pedal Edema Psy/Mental Status: Reports: Alert. Denies: Agitated, Hallucinations, Withdrawal Symptoms
== END 2019-08-10 11:18 | DRG 884 ==
LOC: KA.MS 09:51 → UNDOADMIN 09:51 → KA.MS 10:56
PROVIDERS: ADMIT Physician Assistant; ATTEND Physician Assistant
DX: F03.90 Unspecified dementia, unspecified severity, without behavioral disturbance, psychotic disturbance, mood disturbance, and anxiety (principal); E46 Unspecified protein-calorie malnutrition; R10.2 Pelvic and perineal pain; F29 Unspecified psychosis not due to a substance or known physiological condition; Z79.82 Long term (current) use of aspirin; Z79.899 Other long term (current) drug therapy; Z88.0 Allergy status to penicillin; Z88.1 Allergy status to other antibiotic agents; Z91.09 Other allergy status, other than to drugs and biological substances; Z88.8 Allergy status to other drugs, medicaments and biological substances; Z68.27 Body mass index [BMI] 27.0-27.9, adult
CPT/HCPCS: 87077; A9270-GY; J1630